=== PATIENT | female | born 1935 | race Caucasian/White ===

== ENCOUNTER 2016-12-19 07:54 | Emergency (ER) | payer MEDICARE, OTHER ==
--- NOTE | 2016-12-19 08:16 | ED Physician Documentation ---
Upper Respiratory Symptoms - HISTORIAN Historian: patient - HPI Chief Complaint: Upper Respiratory Symptoms Onset: days ago Context: denies: recent foreign travel, insect bite(s), tick(s), recent chemotherapy, multiple patients Severity: moderate Associated Symptoms: chills, runny nose, productive cough Further Comments: yes (81 year old female patient presents with complaints of cough, "it's in my chest"; congestion, fatigue x 1 week. Patient states she saw her doctor but "he wouldn't give me an antibiotic".) - ROS CONST/EYES: weakness CVS/RESP: none, other (cough) LYMPH: denies: leg swelling, rash, swollen glands, ankle swelling GI/: none NEURO/PSYCH: denies: fainting, dizziness, confusion, anxiety, depression, other MS/SKIN: denies: joint pain, muscle aches, rash, other - PAST HX Lung Disease: denies: none PE Risk Factors: hypertension, other (HLD, ) Other History: diabetes Type 2 Surgeries/Procedures: appendectomy, cholecystectomy, (x3) Allergies/Adverse Reactions: Allergies Allergy/AdvReac Type Severity Reaction Status Date / Time Penicillins Allergy Intermediate Rash Verified 12/19/16 09:02 metformin AdvReac Intermediate Diarrhea Verified 12/19/16 09:04 Home Medications: Ambulatory Orders Medication Instructions Recorded Ezetimibe [Zetia] 10 mg PO DAILY 09/30/14 Fosinopril Sodium [Monopril] 10 mg PO TID 09/30/14 Levothyroxine Sodium [Synthroid] 100 mcg PO AM 09/30/14 Rosuvastatin Calcium [Crestor] 20 mg PO DAILY 09/30/14 Sitagliptin Phosphate [Januvia] 100 mg PO DAILY 09/30/14 Benzonatate [Tessalon Perles] 200 mg PO TID PRN #60 capsule 12/19/16 Furosemide [Lasix] 20 mg PO DAILY #30 tablet 12/19/16 Omeprazole [Prilosec] 20 mg PO 12/19/16 Potassium Chloride [Klor-Con 10 meq PO DAILY #30 capsule.er 12/19/16 Sprinkle] - SOCIAL HX Smoking History: non-smoker - FAMILY HX Family History: denies: none - VITAL SIGNS Vital Signs: Vital Signs Temp Pulse Resp BP Pulse Ox 150/68 10/26/16 08:15 - REVIEWED ASSESSMENTS Nursing Assessment Reviewed: Yes Vitals Reviewed: Yes Progress - Progress Progress: 3+ pitting edema in ankles and lower legs; KAL hose placed on patient. 1045 BNP 3407 today, no previous BNP to compare values to. Call to Dr Zafar - discussed case, reviewed previous records. Will see patient in clinic tomorrow. Agrees with low dose lasix. Per Dr Zafar, patient is being worked up for valve replacement. Reviewed discharge instructions with patient and family including daily weights and treatment of URI. Appointment made for 12/20/2016 - 1300 - EKG/XRAY/CT EKG: rhythm (SR, with occassional PVC, rate 76) XRAY: chest (mild pulmonary congestion, no infiltrate, cardiomegaly) ED Results Lab/Radiology - Radiology Radiology Impressions: EXAMINATION: Chest, two views. HISTORY: Cough for 1 week. FINDINGS: The heart is enlarged. There is atherosclerosis of the aorta. The lungs are free of acute infiltrate. There is no pleural effusion or pneumothorax. There is atherosclerosis of the aorta. IMPRESSION: 1. Cardiomegaly with mild aortic atherosclerosis. 2. No acute pulmonary infiltrate. Electronically signed on Dec 19, 2016 8:57:40 AM WOUND CARE SPECIALIST by: Aleksandar Lieberman - Orders Orders: ED Orders Category Date Time Status INFLUENZA A&B Stat Lab 12/19/16 Uncollected Upper Respiratory Symptoms - EXAM General Appearance: mild distress (ill appearing) EENT: eyes nml inspection, nml ENT inspection, lids & conjunct. nml, PERRL, ear nml, nose nml, pharynx nml, airway nml Respiratory: no resp. distress, breath sounds nml, no pain on inspiration, speaks full sentences, no pleuritic chest pain Abdomen: non-tender, no organomegaly, nml bowel sounds, no distention CVS: reg rate & rhythm, heart sounds normal, equal pulses, no murmur, no gallop , PMI nml, no JVD, no friction rub, 24 Skin: color nml, no rash, warm,dry Extremities: non-tender, normal range of motion, no evidence of injury, no edema , J, [employer]ER Neuro/Psych: oriented x3, neuro intact, mood/affect nml, CN's nml as tested Discharge Clincal Impression: Cough, Viral syndrome CHF (congestive heart failure), NYHA class III Qualifiers: Congestive heart failure type: systolic Congestive heart failure chronicity: acute Qualified Code(s): I50.21 - Acute systolic (congestive) heart failure Prescriptions: Benzonatate [Tessalon Perles] 200 mg PO TID PRN #60 capsule PRN Reason: Cough Furosemide [Lasix] 20 mg PO DAILY #30 tablet Potassium Chloride [Klor-Con Sprinkle] 10 meq PO DAILY #30 capsule.er Referrals: Wisam Quintana DO [Primary Care Provider] - 2 Days Additional Instructions: 3 prescriptions were sent to the pharmacy. Start the POTASSIUM AND FUROSEMIDE TOMORROW. You received a dose in the Er today. WEIGH EVERYDAY AT THE SAME TIME A DAY AND KEEP A RECORD FOR DR ZAFAR. For your cold: supervisor counseling and guidance an over the counter decongestant for cardiac patients, ask the pharmacist for assistance if you cannot locate it. You may want to try Vicks rub on your chest and/or feet Cough drops as needed for cough and sore throat. Increase your fluid intake juices, hot tea, non-caffeinated beverages Vitamin C may be helpful in decreasing the length of your cold. Use a humidifier in the room where you sleep. You can also sit in a steam filled bathroom 1-2 times a day. Tylenol every 4 hours 650mg -100mg (do not exceed 4000mg in 24 hours) as needed for fever, pain and body aches. Alternate with Ibuprofen Ibuprofen 600-800mg every 6 hours as needed for fever, pain and body aches. See your primary care doctor if your symptoms become worse or do not improve in the next 2-3 days. We will call you with your viral panel results. Home Medications: Ambulatory Orders Ezetimibe [Zetia] 10 mg PO DAILY 09/30/14 Fosinopril Sodium [Monopril] 10 mg PO TID 09/30/14 Levothyroxine Sodium [Synthroid] 100 mcg PO AM 09/30/14 Rosuvastatin Calcium [Crestor] 20 mg PO DAILY 09/30/14 Sitagliptin Phosphate [Januvia] 100 mg PO DAILY 09/30/14 Benzonatate [Tessalon Perles] 200 mg PO TID PRN #60 capsule 12/19/16 Furosemide [Lasix] 20 mg PO DAILY #30 tablet 12/19/16 Omeprazole [Prilosec] 20 mg PO 12/19/16 Potassium Chloride [Klor-Con Sprinkle] 10 meq PO DAILY #30 capsule.er 12/19/16 Condition: Stable Disposition: 01 HOME, SELF-CARE Decision to Admit: NO Decision Time: 11:00
[2016-12-19] MEDS ORDERED: BENZONATATE 100 MG CAPSULE PO ONE (08:31)
[2016-12-19] MEDS ORDERED: ACETAMINOPHEN 500 MG TABLET PO ONE (09:04)
[2016-12-19] MEDS ORDERED: KETOROLAC TROMETHAMINE 60 MG/2 ML VIAL IM ONE (09:04)
[2016-12-19 09:36] LABS: BASOPHILS % 0.6 (0.0-1.5); EOSINOPHILS % 7.1 % (0.0-6.8); LYMPHOCYTES # 1.3 # k/uL (0.6-4.0); MEAN CORPUSCULAR HEMOGLOBIN 30.8 pg (28.0-34.0); MONOCYTES # 0.3 # k/uL (0.0-0.9); MONOCYTES % 6.7 % (0.0-11.0); NEUTROPHILS # 2.4 # k/uL (1.4-7.7)
[2016-12-19] MEDS ORDERED: FUROSEMIDE 40 MG/4 ML VIAL IVP ONE (10:10)
[2016-12-19 10:21] LABS: eGFR (African) > 60; eGFR (Non-African) > 60
[2016-12-19] MEDS ORDERED: FUROSEMIDE 20 MG/2 ML VIAL IVP ONE (10:46)
[2016-12-19] MEDS ORDERED: POTASSIUM CHLORIDE 20 MEQ TABLET.ER PO ONE (10:47)
--- NOTE | 2016-12-19 15:03 | Diagnostic Imaging Report ---
SHAYNE SHARIF (SENIOR EDUCATION SPECIALIST) - ER [facility] [place] [facility] [address] [facility].[address] [address] Report Submission Date: Dec 19, 2016 8:57:40 AM ASBESTOS BRAKE LINING FINISHER HELPER Patient Study Name: GALI EDGE Date: Dec 19, 2016 8:35:00 AM ASBESTOS BRAKE LINING FINISHER HELPER Modality Type: CR Gender: F Description: CHEST : 31 Institution: [facility] [place] [facility] Physician: SHAYNE SHARIF (VELVET) - ER EXAMINATION: Chest, two views. HISTORY: Cough for 1 week. FINDINGS: The heart is enlarged. There is atherosclerosis of the aorta. The lungs are free of acute infiltrate. There is no pleural effusion or pneumothorax. There is atherosclerosis of the aorta. IMPRESSION: 1. Cardiomegaly with mild aortic atherosclerosis. 2. No acute pulmonary infiltrate. Electronically signed on Dec 19, 2016 8:57:40 AM ASBESTOS BRAKE LINING FINISHER HELPER by: Aleksandar BAUTISTA
[2016-12-19 20:17] VITALS: BP 130/62
[2016-12-20 08:21] LABS: ADENOVIRUS DNA NEGATIVE (NEGATIVE); BORDETELLA PERTUSSIS DNA NEGATIVE (NEGATIVE); SOURCE: SWAB
== END 2016-12-19 08:13 | disposition home or self-care (01) ==
LOC: ED 07:54
DX: R05 Cough (principal); J06.9 Acute upper respiratory infection, unspecified; I50.21 Acute systolic (congestive) heart failure
CPT/HCPCS: 71020; 80053; 83880; 85025; 87400; 87486; 87581; 87633; 87798; 93005; A9270; J1885; J1940; 96374; 96375; 99283; 99284; S1016

== ENCOUNTER 2016-12-20 12:53 | Outpatient (CLI) | payer MEDICARE, OTHER ==
[2016-12-19 20:17] VITALS: BP 130/62
== END 2016-12-20 12:54 ==
LOC: CARD 12:53
PROVIDERS: ATTEND Internal Medicine Cardiovascular Disease
DX: I35.0 Nonrheumatic aortic (valve) stenosis (principal)
CPT/HCPCS: G0463

== ENCOUNTER 2017-04-18 13:51 | Outpatient (CLI) | payer MEDICARE, OTHER | END 2017-04-18 13:52 | LOC: CARD 13:51 | PROVIDERS: ATTEND Internal Medicine Cardiovascular Disease | DX: I47.1 Supraventricular tachycardia (principal); I50.30 Unspecified diastolic (congestive) heart failure; I10 Essential (primary) hypertension; E78.5 Hyperlipidemia, unspecified; E11.8 Type 2 diabetes mellitus with unspecified complications; D47.3 Essential (hemorrhagic) thrombocythemia | CPT/HCPCS: G0463 ==

== ENCOUNTER 2017-05-01 08:59 | Outpatient (CLI) | payer MEDICARE, OTHER ==
[2017-05-01 09:31] LABS: BASOPHILS % 0.7 (0.0-1.5); EOSINOPHILS % 5.9 % (0.0-6.8); MEAN CORPUSCULAR HEMOGLOBIN 31.3 pg (28.0-34.0); MEAN CORPUSCULAR VOLUME 90.8 fl (80.0-100.0); MONOCYTES % 7.3 % (0.0-11.0); NEUTROPHILS # 2.8 # k/uL (1.4-7.7)
== END 2017-05-01 09:00 ==
LOC: LAB 08:59
PROVIDERS: ATTEND Internal Medicine Cardiovascular Disease
DX: I47.1 Supraventricular tachycardia (principal)
CPT/HCPCS: 36415; 84443; 85025

== ENCOUNTER 2017-10-10 11:19 | Outpatient (CLI) | payer MEDICARE, OTHER | END 2017-10-10 11:20 | LOC: CARD 11:19 | PROVIDERS: ATTEND Internal Medicine Cardiovascular Disease | DX: Z95.2 Presence of prosthetic heart valve (principal); I50.9 Heart failure, unspecified; I10 Essential (primary) hypertension; E78.5 Hyperlipidemia, unspecified; E11.9 Type 2 diabetes mellitus without complications; R25.1 Tremor, unspecified; I48.91 Unspecified atrial fibrillation | CPT/HCPCS: G0463 ==

== ENCOUNTER 2018-04-06 01:27 | Emergency (ER) | payer MEDICARE, OTHER ==
--- NOTE | 2018-04-06 01:46 | ED Physician Documentation ---
Abdominal Pain - HISTORIAN Historian: patient, child - HPI Chief Complaint: Abdominal Pain Additonal Information: chronic abdominal pain constipation-better since onprobiotic bid still inadequate bm--normal color w/o blood plus mecous Onset: days ago (3-4) Duration: waxing, waning Timing: still present Context: denies: out of country travel, bad food, recent trauma Severity: moderate Quality: pain, aching, other (shakiness denny hands mouth) Associated Symptoms: denies: fever, nausea, coffee ground emesis Exacerbated by: food Relieved by: remaining still, upright position Further Comments: yes - ROS CONST: no problems - SOCIAL HX Smoking History: non-smoker Alcohol Use: none Drug Use: none - FAMILY HX Family History: none, no significant history - PAST HX Past History: none, cardiac disease Other History: none, diabetes Type 1 Surgeries/Procedures: appendectomy, cholecystectomy, hysterectomy Home Medications: Ambulatory Orders Medication Instructions Recorded Fosinopril Sodium [Monopril] 10 mg PO TID 09/30/14 Levothyroxine Sodium [Synthroid] 100 mcg PO AM 09/30/14 Rosuvastatin Calcium [Crestor] 20 mg PO DAILY 09/30/14 Sitagliptin Phosphate [Januvia] 100 mg PO DAILY 09/30/14 Furosemide [Lasix] 20 mg PO DAILY #30 tablet 12/19/16 Omeprazole [Prilosec] 20 mg PO 12/19/16 Potassium Chloride [Klor-Con 10 meq PO DAILY #30 capsule.er 12/19/16 Sprinkle] L.acidoph,Paracasei, B.lactis 1 each PO BID 04/06/18 [Probiotic] Propranolol HCl [Inderal] 20 mg PO QD 04/06/18 Allergies/Adverse Reactions: Allergies Allergy/AdvReac Type Severity Reaction Status Date / Time Penicillins Allergy Intermediate Rash Verified 04/06/18 01:45 - VITAL SIGNS Vital Signs: Vital Signs Temp Pulse Resp BP Pulse Ox 130/62 12/19/16 20:14 - REVIEWED ASSESSMENTS Nursing Assessment Reviewed: Yes Vitals Reviewed: Yes ED Results Lab/Radiology - Radiology Radiology Impressions: cxr= ok abd = xs gas feces - Orders Orders: ED Orders Category Date Time Status ACUTE ABDOMINAL SERIES [ABD SERIES PA CHEST] [RAD] Stat Exams 04/06/18 Ordered Abdominal Pain Physical Exam - Physical Exam General Appearance: alert, mild distress, anxious. No: lethargic EENT: eye inspection normal, ENT inspection normal NECK: normal inspection, thyroid normal, supple. No: stiff neck CVS: No: tachycardia, bradycardia ABDOMEN: soft, non-tender, tenderness. No: no distension, hepatomegaly, abnormal bowel sounds, prominent aortic pulsatio BACK: normal inspection, no CVA tenderness, CVA tenderness (R), other SKIN: warm/dry, normal color. No: cyanosis, diaphoresis, jaundice EXTREMITIES: normal range of motion, no evidence of injury NEURO: oriented X3, CN's nml as tested, motor nml, sensation nml, mood/affect nml, cognition normal Vital Signs: Vital Signs Temp Pulse Resp BP Pulse Ox 130/62 12/19/16 20:14 Discharge Clincal Impression: un dx abd pain, constipaion Referrals: Wisam Quintana DO [Primary Care Provider] - 2 Days Comments: home mg citrate plus xs water f/u w/pcp if not beetter w/ good bms Condition: Good Disposition: 01 HOME, SELF-CARE Decision to Admit: NO Decision Time: 02:17
[2018-04-06 01:50] VITALS: BP 183/85
--- NOTE | 2018-04-06 02:23 | Diagnostic Imaging Report ---
[facility] [address] [facility] [place], [place]. [address] Report Submission Date: Apr 06, 2018 2:22:04 AM CDT Patient Study Name: GALI EDGE Date: Apr 06, 2018 1:51:37 AM CDT Modality Type: DX Gender: F Description: CHEST,ABDOMEN : 31 Institution: [facility] Physician: LILA BOWEN Abdominal structures series with AP chest. History: PT STATES ABDOMINAL PAIN, SHAKINESS, NAUSEA, AND DIARRHEA FOR X1 DAY Findings: The tip of the heart size is no areas of sclerosis of the aorta. Lungs are clear. No pleural effusion or pneumothorax identified. The bowel gas pattern is normal without evidence of bowel dilation to suggest obstruction. A few air-fluid levels are present within the colon suggesting gastroenteritis. There is degenerative and bilateral hips. No free air present. Impression: 1. No acute pulmonary abnormality. 2. No bowel dilation to suggest obstruction 3. Few air-fluid levels are present within the colon suggesting gastroenteritis Electronically signed on Apr 06, 2018 2:22:04 AM CDT by: Aleksandar Lieberman [facility] HOSPITALDeshaun
== END 2018-04-06 02:35 | disposition home or self-care (01) ==
LOC: ED 01:27
DX: R10.9 Unspecified abdominal pain (principal); K59.00 Constipation, unspecified
CPT/HCPCS: 74022; 99284

== ENCOUNTER 2018-07-07 09:50 | Inpatient (IN) | payer MEDICARE, OTHER ==
--- NOTE | 2018-07-07 10:01 | ED Physician Documentation ---
General Adult - HISTORIAN Historian: patient - HPI Stated Complaint: left lower leg swelling Chief Complaint: Lower Extremity Problem Onset: other (total two weeks) Timing: still present, worse Severity: moderate Further Comments: yes (she states two weeks ago she started to have some increased swelling in her left lower leg. She denies any history of DVT. She has "always had swelling " in the left lower leg. Her PCP started her on a double dose of her lasix (although family with her reports she does not take it like she should due to frequent urination). She states she has been taking the 20 mg daily x 2 weeks. She states last night in the middle of the night the leg started to throb and feel hot and swollen. She notes increased swelling and red ness and she felt feverish.She is now stating with no movement her leg does not hurt. However when you "touch my gabriel the front part of my leg hurts" She denies any chest pain . She has mild shortness of breath but states this is her normal. She has a mild headache.) Last known Well Code/Unknown Code: Unknown - ROS CONST: fever, weakness. denies: sweating, recent illness, weight loss EYES/ENT: nasal drainage. denies: problems with vision CVS/RESP: denies: chest pain, shortness of breath, cough GI/: nausea (but states she did take a laxative this am and she had a normal bowel movement which usually results in decreasing nausea ). denies: abdominal pain, vomiting MS/SKIN/LYMPH: leg swelling. denies: rash NEURO/PSYCH: headache. denies: fainting, dizziness, numbness, difficulty walking, difficulty with speech, anxiety - PAST HX Past History: CHF, hypertension, other (DM, hyperlipidemia ) Surgeries/Procedures: other (3- c sections, gallbladder, appy ) Immunizations: referred to PCP Allergies/Adverse Reactions: Allergies Allergy/AdvReac Type Severity Reaction Status Date / Time Penicillins Allergy Intermediate Rash Verified 04/06/18 01:45 Home Medications: Ambulatory Orders Medication Instructions Recorded Fosinopril Sodium [Monopril] 10 mg PO TID 09/30/14 Levothyroxine Sodium [Synthroid] 100 mcg PO AM 09/30/14 Rosuvastatin Calcium [Crestor] 20 mg PO DAILY 09/30/14 Sitagliptin Phosphate [Januvia] 100 mg PO DAILY 09/30/14 Furosemide [Lasix] 20 mg PO DAILY #30 tablet 12/19/16 Omeprazole [Prilosec] 20 mg PO DAILY 12/19/16 Potassium Chloride [Klor-Con 10 meq PO DAILY #30 capsule.er 12/19/16 Sprinkle] L.acidoph,Paracasei, B.lactis 1 each PO BID 04/06/18 [Probiotic] Propranolol HCl [Inderal] 20 mg PO QD 04/06/18 - SOCIAL HX Smoking History: non-smoker Alcohol Use: none Drug Use: none - FAMILY HX Family History: No - VITAL SIGNS Vital Signs: Vital Signs Temp Pulse Resp BP Pulse Ox 183/85 04/06/18 02:35 - REVIEWED ASSESSMENTS Nursing Assessment Reviewed: Yes Vitals Reviewed: Yes ED Results Lab/Radiology - Radiology Radiology Impressions: History: Left leg swelling and shortness of breath Findings: Minimal left base atelectasis or scar is observed. There is no infiltrate or pleural effusion. Aortic valve replacement is observed. Heart size is upper normal. Calcified granulomas are present. Impression: Aortic valve replacement and minimal left basilar atelectasis or scar. Electronically signed on Jul 07, 2018 11:40:24 AM CDT by: Rashid Bennett General Adult Physical Exam - PHYSICAL EXAM GENERAL APPEARANCE: no distress EENT: eye inspection normal, ENT inspection normal, pharynx normal, no signs of dehydration NECK: normal inspection, thyroid normal RESPIRATORY: no resp distress, chest non-tender, breath sounds normal CVS: reg rate & rhythm, heart sounds normal, no murmur ABDOMEN: soft, normal bowel sounds, no distension BACK: normal inspection SKIN: warm/dry, other (left lower leg red warm to touch and painful on frontal lower leg . No pain with calf palpation. foot flexion without pain. pulses + sensation + ) EXTREMITIES: edema (extends from knee to foot ), tenderness (left lower leg) NEURO: oriented X3, CN's nml as tested, motor nml, sensation nml, mood/affect nml, cognition normal Discharge Clincal Impression: Cellulitis of left lower leg Comments: 1230: discussed case with Dr Magdaleno he is agreeable to admission. Family and patient are aware and agreeable DG Condition: Good Disposition: ADMITTED INPATIENT Decision to Admit: [id number] Date of Decison to Admit: 07/07/18 Decision Time: 12:30
[2018-07-07 10:25] LABS: MEAN CORPUSCULAR HEMOGLOBIN 29.9 pg (28.0-34.0); MEAN CORPUSCULAR VOLUME 88.5 fl (80.0-100.0)
[2018-07-07 10:26] LABS: BASOPHILS % 0.2 (0.0-1.5); EOSINOPHILS % 0.5 % (0.0-6.8); MONOCYTES % 3.1 % (0.0-11.0); NEUTROPHILS # 11.5 # k/uL (1.4-7.7)
[2018-07-07 10:28] LABS: eGFR (Non-African) 38
--- NOTE | 2018-07-07 12:51 | Diagnostic Imaging Report ---
MAMIE JOHNSON [facility] [address] [facility] [address] [place], [place]. [address] Report Submission Date: Jul 07, 2018 11:40:24 AM CDT Patient Study Name: GALI EDGE Date: Jul 07, 2018 11:14:28 AM CDT Modality Type: DX Gender: F Description: CHEST : 31 Institution: [facility] Physician: MAMIE JOHNSON Chest two views History: Left leg swelling and shortness of breath Findings: Minimal left base atelectasis or scar is observed. There is no infiltrate or pleural effusion. Aortic valve replacement is observed. Heart size is upper normal. Calcified granulomas are present. Impression: Aortic valve replacement and minimal left basilar atelectasis or scar. Electronically signed on Jul 07, 2018 11:40:24 AM CDT by: Rashid BAUTISTA
[2018-07-07] MEDS ORDERED: 0.9 % SODIUM CHLORIDE 100 ML IV ONE (13:45)
[2018-07-07] MEDS ORDERED: ceFAZolin SODIUM 1 GM VIAL ONE ×3 (13:45→23:18)
[2018-07-07] MEDS: ceFAZolin SODIUM 1 GM VIAL IV SCH ×3 (13:54→23:32)
[2018-07-07] MEDS ORDERED: ENOXAPARIN SODIUM 80 MG/0.8 ML DISP.SYRIN SQ SCH (14:00)
--- NOTE | 2018-07-07 16:30 | History and Physical Report ---
History of Present Illnes - History of Present Illness Reason for Visit: cellulitis of left leg History of Present Illness: This is an 82 year old female who presented to the ER with c/o left lower leg pain and redness. The pain is in the left anterior gabriel, much less so in the left calf. There is a clear area of demarcation of the erythema below the left knee. She says that this came about fairly quickly and is very uncomfortable. Her D-dimer is elevated, as is her white count. - Past Medical History Cardiac: Hyperlipidemia, Aortic stenosis, Other (Peripheral arterial disease) Pulmonary: denies: COPD Gastrointestinal: Other (obesity) Endocrine: Diabetes, Hypothyroidism - Past Surgical History Past Surgical History: Appendectomy, (x3), Other (TAVR) - Past Social History Smoke: No Alcohol: None Drugs: None Lives: Alone Domestic Violence: Negative - Health Maintenance Health Maintenance: Cholesterol Influenza Vaccine: Current for this Influenza Season Pneumonia Vaccine: Yes Resuscitation Status: Resusciation Status Resuscitation Status Full Code - Unable to Obtain History Unable to Obtain: Yes Review of Systems - Review of Systems Constitutional: Fever (low grade) Eyes: pain (left leg) ENT: negative: Ear Pain Respiratory: negative: Cough Cardiovascular: negative: Chest Pain Gastrointestinal: negative: Nausea Genitourinary: negative: Dysuria Musculoskeletal: negative: Neck Pain Skin: negative: Rash Neurological: Weakness - Medications/Allergies Allergies/Adverse Reactions: Allergies Allergy/AdvReac Type Severity Reaction Status Date / Time Penicillins Allergy Intermediate Rash Verified 04/06/18 01:45 Current Inpatient Medications: Current Inpatient Medications Cefazolin Sodium (Ancef) 1 gm IV Q6 [facility] Last Admin: 07/07/18 13:54 Dose: 1 gm Enoxaparin Sodium (Lovenox) 86 mg SQ Q12 [facility] Stop: 07/13/18 21:01 Furosemide (Lasix) 20 mg IVP QD [facility] Levothyroxine Sodium (Synthroid) 100 mcg PO 0700 [facility] Lisinopril (Prinivil) 10 mg PO DAILY [facility] Pantoprazole Sodium (Protonix) 40 mg PO 0700 [facility] Potassium Chloride (Klor-Con M20) 20 meq PO DAILY [facility] Propranolol HCl (Inderal) 20 mg PO DAILY [facility] Simvastatin (Zocor) 40 mg PO HS [facility] Sitagliptin Phosphate (Januvia) 100 mg PO DAILY [facility] Sodium Chloride (Normal Saline Flush) 3 ml IV BID BRIAN Exam - Exam Vital Signs: Vital Signs (72 hours) 07/07/18 07/07/18 07/07/18 09:50 10:01 11:01 Temperature 99.1 F Pulse Rate [ 120 H Pulse ox] Respiratory 28 H Rate Blood Pressure [Left Arm] Blood Pressure 143/62 [Right Arm] O2 Sat by Pulse 88 L 96 96 Oximetry 07/07/18 07/07/18 07/07/18 12:00 13:00 15:15 Temperature Pulse Rate [ 100 H Pulse ox] Respiratory 18 Rate Blood Pressure 110/68 [Left Arm] Blood Pressure [Right Arm] O2 Sat by Pulse 96 96 96 Oximetry General: Alert, Oriented to Person, Oriented to Place HEENT: Atraumatic, PERRLA, EOMI Neck: No: Stridor Lungs: Clear to auscultation, Normal air movement, Speaks full Sentences. No: Respiratory Distress Cardiovascular: Regular rate Murmur: Systolic Murmur (II/ COLE) Abdomen: Normal bowel sounds, Soft Genitourinary: No: Other Male Genitourinary: No: Other Female Genitourinary: No: Other Integumentary: No: Other Extremities: Other (Pain in left anterior gabriel with erythema of the skin. Calf is much less tender to palpation). No: Normal pulses (decreased DP/PT) Neurological: Normal speech Psych/Mental Status: Mental status NL - Laboratory Results Laboratory Results: Laboratory Results 07/07/18 07/07/18 07/07/18 10:06 10:06 10:06 WBC 13.11 H RBC 3.99 Hgb 12.0 Hct 35.3 MCV 88.5 MCH 29.9 MCHC 33.8 RDW 14.0 Plt Count 125 L Neut % (Auto) 88.0 H Lymph % (Auto) 7.5 L Foster % (Auto) 3.1 Eos % (Auto) 0.5 Baso % (Auto) 0.2 Neut # (Auto) 11.5 H Lymph # (Auto) 1.0 Foster # (Auto) 0.4 Eos # (Auto) 0.1 Baso # (Auto) 0.0 Reactive Lymphs % Pending Reactive Lymphs # Pending PT 10.8 INR 1.03 D-Dimer Sodium 135 L Potassium 4.0 Chloride 104 Carbon Dioxide 22 BUN 25 H Creatinine 1.40 H Estimated Creat Clear 47 Est GFR ( Amer) > 60 Est GFR (Non-Af Amer) 38 L Glucose 177 H Calcium 8.5 Total Bilirubin 0.6 AST 19 ALT 24 Alkaline Phosphatase 61 Creatine Kinase 32 Troponin I NT-Pro-B Natriuret Pep Total Protein 6.7 Albumin 3.8 07/07/18 07/07/18 10:07 11:07 WBC RBC Hgb Hct MCV MCH MCHC RDW Plt Count Neut % (Auto) Lymph % (Auto) Foster % (Auto) Eos % (Auto) Baso % (Auto) Neut # (Auto) Lymph # (Auto) Foster # (Auto) Eos # (Auto) Baso # (Auto) Reactive Lymphs % Reactive Lymphs # PT INR D-Dimer 3885 H Sodium Potassium Chloride Carbon Dioxide BUN Creatinine Estimated Creat Clear Est GFR ( Amer) Est GFR (Non-Af Amer) Glucose Calcium Total Bilirubin AST ALT Alkaline Phosphatase Creatine Kinase Troponin I < 0.03 L NT-Pro-B Natriuret Pep 479.6 H Total Protein Albumin Assessment/Plan - Assessment/Plan (1) Cellulitis of left lower leg Status: Acute Current Visit: Yes Assessment: Continue Ancef at current dose Await blood cultures Plan: Discussed with family that although clinically this appears to be cellulitis with elevated WBC and pain in anterior left, I would recommend that we anticoagulate Yesi until we can get an US on Monday (2) Diabetes Status: Acute Current Visit: Yes Qualifiers: Diabetes mellitus type: type 2 Diabetes mellitus mcfp insulin use: without long winder tender use Diabetes mellitus complication status: with circulatory complication Diabetes mellitus complication detail: with other circulatory complications Qualified Code(s): E11.59 - Type 2 diabetes mellitus with other circulatory complications Assessment: ACHS accuchecks Continue oral hypoglycemics (3) CHF (congestive heart failure), NYHA class III Status: Acute Current Visit: No Qualifiers: Congestive heart failure type: systolic Congestive heart failure chronicity: acute Qualified Code(s): I50.21 - Acute systolic (congestive) heart failure VTE Assessment - RISK FACTOR SCORE VTE RISK FACTOR SCORES: AGE OVER 60 YEARS (On Lovenox), ACUTE INFECTION OTHER THEN SEPSIS
[2018-07-07] MEDS ORDERED: ENOXAPARIN SODIUM 80 MG/0.8 ML DISP.SYRIN SQ ONE (16:41)
[2018-07-07] MEDS ORDERED: FUROSEMIDE 20 MG/2 ML VIAL ONE (16:42)
[2018-07-07] MEDS: FUROSEMIDE 20 MG/2 ML VIAL IVP SCH (16:45)
[2018-07-07] MEDS ORDERED: ENOXAPARIN SODIUM 100 MG/ML DISP.SYRIN SQ ONE ×3 (16:50→22:55)
[2018-07-07 18:05] VITALS: BMI 28.1
[2018-07-07] MEDS: SALINE FLUSH 10 ML DISP.SYRIN IV SCH (20:02)
[2018-07-07] MEDS: ENOXAPARIN SODIUM 80 MG/0.8 ML DISP.SYRIN SQ SCH (20:03)
[2018-07-07] MEDS: SIMVASTATIN 40 MG TABLET PO SCH (20:03)
[2018-07-07] MEDS: ACETAMINOPHEN 325 MG TABLET PO PRN (20:03)
[2018-07-08] MEDS ORDERED: ceFAZolin SODIUM 1 GM VIAL ONE ×4 (05:09→22:59)
[2018-07-08] MEDS: ceFAZolin SODIUM 1 GM VIAL IV SCH ×4 (05:12→23:08)
[2018-07-08] MEDS: LEVOTHYROXINE SODIUM 100 MCG TABLET PO SCH (06:10)
[2018-07-08] MEDS: PANTOPRAZOLE SODIUM 40 MG TABLET PO SCH (06:10)
[2018-07-08 07:24] LABS: BASOPHILS % 0.2 (0.0-1.5); EOSINOPHILS % 1.1 % (0.0-6.8); MEAN CORPUSCULAR HEMOGLOBIN 30.1 pg (28.0-34.0); MEAN CORPUSCULAR VOLUME 88.4 fl (80.0-100.0); MONOCYTES % 3.3 % (0.0-11.0); NEUTROPHILS # 6.1 # k/uL (1.4-7.7)
[2018-07-08 07:56] LABS: eGFR (Non-African) 41
[2018-07-08] MEDS ORDERED: LISINOPRIL 5 MG TABLET ONE (08:34)
[2018-07-08] MEDS: PROPRANOLOL HCL 20 MG TABLET PO SCH (08:37)
[2018-07-08] MEDS: SITAGLIPTIN PHOSPHATE 50 MG TABLET PO SCH (08:37)
[2018-07-08] MEDS: SALINE FLUSH 10 ML DISP.SYRIN IV SCH ×2 (08:38→20:19)
[2018-07-08] MEDS: POTASSIUM CHLORIDE 20 MEQ TABLET.ER PO SCH (08:38)
[2018-07-08] MEDS: LISINOPRIL 20 MG TABLET PO SCH (08:39)
--- NOTE | 2018-07-08 11:12 | Diagnostic Imaging Report ---
[facility]MED SURG [facility] [address] [facility].[address] [address] Report Submission Date: Jul 08, 2018 8:05:48 AM CDT Patient Study Name: GALI EDGE Date: Jul 08, 2018 7:34:06 AM CDT Modality Type: DX Gender: F Description: CHEST : 31 Institution: [facility] Physician: S[facility]/MED SURG PA and lateral chest Clinical history: Shortness of breath. Findings: Examination of the chest in PA and lateral views with comparison to examination from the previous day demonstrates the lungs to be clear. The cardiovascular and mediastinal silhouettes are stable. The aorta is atherosclerotic. Transvascular valve replacement is again demonstrated. Degenerative changes are seen throughout the thoracic vertebrae. Impression: 1. Aortic atherosclerosis. 2. No active disease. Electronically signed on Jul 08, 2018 8:05:48 AM CDT by: Maximino BAUTISTA
[2018-07-08] MEDS ORDERED: FUROSEMIDE 20 MG/2 ML VIAL ONE (11:27)
[2018-07-08] MEDS: ENOXAPARIN SODIUM 80 MG/0.8 ML DISP.SYRIN SQ SCH ×2 (12:27→20:20)
--- NOTE | 2018-07-08 12:37 | Inpatient Progress Note ---
Subjective - Required Recertification Statement I anticipate X number of days because-include discharge plan: 1 - Review of Systems Events since last encounter: Yesi's left leg is much improved. My suspicion that this is a DVT is even lower today based on her striking response to antibiosis. Her fever has now resolved, and her pain is much better. She is eating well. She has had several visitors from [facility] today and is in good spirits. General: Denies: Chills HEENT: Denies: Head Aches Pulmonary: Denies: Dyspnea Cardiovascular: Denies: Chest Pain Gastrointestinal: Other (gas) Genitourinary: Dysuria Musculoskeletal: Denies: Neck Pain Neurological: Denies: Weakness Objective - Exam Vitals and I&O: Vital Signs Temp 97.7 F 07/08/18 10:00 Pulse 76 07/08/18 12:00 Resp 20 07/08/18 10:00 BP 146/62 07/08/18 10:00 Pulse Ox 93 07/08/18 10:00 Intake & Output 07/07/18 07/08/18 07/08/18 23:59 11:59 23:59 Intake Total 460 520 Output Total 400 Balance 460 120 Weight 74.389 kg 74.389 kg Intake: IV 100 200 Left Hand 100 200 Oral 360 320 Output: Urine 400 Other: Voiding Method Toilet Toilet # Voids 3 # Bowel Movements 1 General: Alert, Oriented to Person, Oriented to Place, Oriented to Time HEENT: Atraumatic, PERRLA Neck: Supple, No JVD Lungs: Clear to auscultation, Normal air movement Cardiovascular: Regular rate Abdomen: Normal bowel sounds, Soft, No tenderness Extremities: No clubbing, No cyanosis, Other (Redness is much improved) Skin: Normal, [place], Warm Neurological: Normal gait Psych/Mental Status: Mental status NL - Results Results: Laboratory Results WBC 7.90 K/ul (4.00-12.00) 07/08/18 07:20 RBC 3.24 M/ul (3.90-5.20) L 07/08/18 07:20 Hgb 9.8 g/dL (12.0-16.0) L 07/08/18 07:20 Hct 28.6 % (34.5-46.5) L 07/08/18 07:20 MCV 88.4 fl (80.0-100.0) 07/08/18 07:20 MCH 30.1 pg (28.0-34.0) 07/08/18 07:20 MCHC 34.0 g/dL (30.0-36.0) 07/08/18 07:20 RDW 14.2 % (11.3-14.3) 07/08/18 07:20 Plt Count 101 K/mm3 (130-400) L 07/08/18 07:20 Neut % (Auto) 78.1 % (39.0-79.0) 07/08/18 07:20 Lymph % (Auto) 16.2 % (16.0-50.0) 07/08/18 07:20 [place] % (Auto) 3.3 % (0.0-11.0) 07/08/18 07:20 Eos % (Auto) 1.1 % (0.0-6.8) 07/08/18 07:20 Baso % (Auto) 0.2 (0.0-1.5) 07/08/18 07:20 Neut # (Auto) 6.1 # k/uL (1.4-7.7) 07/08/18 07:20 Lymph # (Auto) 1.3 # k/uL (0.6-4.0) 07/08/18 07:20 [place] # (Auto) 0.3 # k/uL (0.0-0.9) 07/08/18 07:20 Eos # (Auto) 0.1 # k/uL (0.0-0.6) 07/08/18 07:20 Baso # (Auto) 0.0 # k/uL (0.0-0.5) 07/08/18 07:20 Reactive Lymphs % 1.1 % (0.0-5.0) 07/08/18 07:20 Reactive Lymphs # 0.1 # k/uL (0.0-0.8) 07/08/18 07:20 PT 10.8 Seconds (9.4-11.6) 07/07/18 10:06 INR 1.03 (0.9-1.2) 07/07/18 10:06 D-Dimer 3885 ng/mL (6.0-682) H 07/07/18 10:07 Sodium 133 mmol/L (136-145) L 07/08/18 07:20 Potassium 3.6 mmol/L (3.5-5.1) 07/08/18 07:20 Chloride 107 mmol/L (98-107) 07/08/18 07:20 Carbon Dioxide 21 mmol/L (22-30) L 07/08/18 07:20 BUN 24 mg/dL (7-17) H 07/08/18 07:20 Creatinine 1.30 mg/dL (0.52-1.04) H 07/08/18 07:20 Estimated Creat Clear 44 07/08/18 07:20 Est GFR ( Amer) > 60 (60-) 07/08/18 07:20 Est GFR (Non-Af Amer) 41 (60-) L 07/08/18 07:20 Glucose 129 mg/dL (74-106) H 07/08/18 07:20 Calcium 7.8 mg/dL (8.4-10.2) L 07/08/18 07:20 Total Bilirubin 0.4 mg/dL (0.2-1.3) 07/08/18 07:20 AST 17 U/L (15-46) 07/08/18 07:20 ALT 19 U/L (13-69) 07/08/18 07:20 Alkaline Phosphatase 44 U/L (38-126) 07/08/18 07:20 Creatine Kinase 32 U/L (30-135) 07/07/18 10:06 Troponin I < 0.03 ng/mL (0.03-0.06) L 07/07/18 11:07 NT-Pro-B Natriuret Pep 1121.0 pg/mL (15.0-450.0) H 07/08/18 07:20 Total Protein 5.7 g/dL (6.3-8.2) L 07/08/18 07:20 Albumin 3.0 g/dL (3.5-5.0) L 07/08/18 07:20 Assessment/Plan - Assessment/Plan (1) Cellulitis of left lower leg Status: Acute Current Visit: Yes Assessment: Markedly improved Plan: Continue Ancef (2) Diabetes Status: Acute Current Visit: Yes Qualifiers: Diabetes mellitus type: type 2 Diabetes mellitus remote computer terminal operator insulin use: without fpc use Diabetes mellitus complication status: with circulatory complication Diabetes mellitus complication detail: with other circulatory complications Qualified Code(s): E11.59 - Type 2 diabetes mellitus with other circulatory complications (3) CHF (congestive heart failure), NYHA class III Status: Acute Current Visit: No Qualifiers: Congestive heart failure type: systolic Congestive heart failure chronicity: acute Qualified Code(s): I50.21 - Acute systolic (congestive) heart failure Assessment: Stable
[2018-07-08] MEDS: FUROSEMIDE 20 MG/2 ML VIAL IVP SCH (13:36)
[2018-07-08] MEDS: SIMETHICONE 80 MG TAB.CHEW PO SCH ×2 (17:25→20:19)
[2018-07-08] MEDS ORDERED: ENOXAPARIN SODIUM 100 MG/ML DISP.SYRIN SQ ONE ×2 (20:17→22:39)
[2018-07-08] MEDS: SIMVASTATIN 40 MG TABLET PO SCH (20:19)
[2018-07-09] MEDS ORDERED: ceFAZolin SODIUM 1 GM VIAL ONE ×2 (04:24→11:08)
[2018-07-09] MEDS: ceFAZolin SODIUM 1 GM VIAL IV SCH ×2 (05:01→12:08)
[2018-07-09] MEDS: LEVOTHYROXINE SODIUM 100 MCG TABLET PO SCH (06:07)
[2018-07-09] MEDS: SIMETHICONE 80 MG TAB.CHEW PO SCH ×4 (06:07→20:09)
[2018-07-09] MEDS: PANTOPRAZOLE SODIUM 40 MG TABLET PO SCH (06:07)
--- NOTE | 2018-07-09 07:39 | Diagnostic Imaging Report ---
MAMIE JOHNSON [facility] [address] [facility], [facility] [place], [place]. [address] Report Submission Date: Jul 09, 2018 6:51:07 AM CDT Patient Study Name: GALI EDGE Date: Jul 09, 2018 6:27:18 AM CDT Modality Type: DX Gender: F Description: CHEST : 31 Institution: [facility] Physician: MAMIE JOHNSON 2 views of the chest History: SHORTNESS OF BREATH, LEG SWELLING Comparison: July 08, 2018 Cardiac size is upper limits of normal. Aortic valve replacement, aortic calcification are again seen. There is bibasilar atelectasis. Dependent lung changes are again noted. There is left costophrenic angle blunting and minimal left basilar opacity. Thoracic spine degenerative changes Impression: 1. Patchy left basilar atelectasis/infiltrate with small left pleural effusion. 2. Minimal right basilar atelectasis. Electronically signed on Jul 09, 2018 6:51:07 AM CDT by: Tabitha BAUTISTA
[2018-07-09] MEDS ORDERED: LISINOPRIL 5 MG TABLET ONE (09:00)
[2018-07-09] MEDS: PROPRANOLOL HCL 20 MG TABLET PO SCH (09:03)
[2018-07-09] MEDS: POTASSIUM CHLORIDE 20 MEQ TABLET.ER PO SCH (09:03)
[2018-07-09] MEDS: ENOXAPARIN SODIUM 80 MG/0.8 ML DISP.SYRIN SQ SCH ×2 (09:03→20:06)
[2018-07-09] MEDS: LISINOPRIL 20 MG TABLET PO SCH (09:03)
[2018-07-09] MEDS: SITAGLIPTIN PHOSPHATE 50 MG TABLET PO SCH (09:03)
[2018-07-09] MEDS: SALINE FLUSH 10 ML DISP.SYRIN IV SCH ×2 (09:03→20:10)
[2018-07-09] MEDS ORDERED: FUROSEMIDE 20 MG/2 ML VIAL ONE (11:08)
[2018-07-09] MEDS ORDERED: ENOXAPARIN SODIUM 100 MG/ML DISP.SYRIN SQ ONE (11:08)
[2018-07-09] MEDS ORDERED: 0.9 % SODIUM CHLORIDE 50 ML IV ONE (11:09)
--- NOTE | 2018-07-09 14:03 | Inpatient Progress Note ---
Subjective - Required Recertification Statement I anticipate X number of days because-include discharge plan: 1 - Review of Systems Events since last encounter: Yesi's redness has now gone down to her ankle. Her left gabriel continues to be very sore to touch. She remains afebrile. I spoke with radiology, and they have her on the schedule to have an us of the leg done. If it is negative for DVT, we will be able to d/c her without anticoagulation and likely will continue you her on oral cefuroxime. Her blood cultues are still pending. I discussed a skilled stay with her and she is amenable to this. General: Denies: Chills, Night Sweats HEENT: Denies: Head Aches Pulmonary: Denies: Dyspnea, Cough Cardiovascular: Denies: Chest Pain Gastrointestinal: Denies: Nausea Genitourinary: Denies: Dysuria Musculoskeletal: Leg Pain (improved). Denies: Neck Pain Neurological: Denies: Weakness, Numbness Objective - Exam Vitals and I&O: Vital Signs Temp 97.4 F L 07/09/18 09:03 Pulse 76 07/09/18 13:45 Resp 20 07/09/18 10:00 BP 120/53 07/09/18 09:03 Pulse Ox 98 07/09/18 09:03 Intake & Output 07/08/18 07/09/18 07/09/18 23:59 11:59 23:59 Intake Total 920 460 240 Balance 920 460 240 Weight 75.45 kg Intake: IV 100 Left Hand 100 Oral 920 360 240 Other: Voiding Method Toilet Toilet # Voids 3 General: Alert, Oriented to Person, Oriented to Place, Discheveled HEENT: PERRLA, EOMI Neck: Supple, No JVD Lungs: Clear to auscultation, Normal air movement Cardiovascular: Regular rate Abdomen: Normal bowel sounds Extremities: Other (redness has regressed) Skin: Normal, [place] Neurological: Normal speech Psych/Mental Status: Mental status NL - Results Results: Laboratory Results WBC 7.90 K/ul (4.00-12.00) 07/08/18 07:20 RBC 3.24 M/ul (3.90-5.20) L 07/08/18 07:20 Hgb 9.8 g/dL (12.0-16.0) L 07/08/18 07:20 Hct 28.6 % (34.5-46.5) L 07/08/18 07:20 MCV 88.4 fl (80.0-100.0) 07/08/18 07:20 MCH 30.1 pg (28.0-34.0) 07/08/18 07:20 MCHC 34.0 g/dL (30.0-36.0) 07/08/18 07:20 RDW 14.2 % (11.3-14.3) 07/08/18 07:20 Plt Count 101 K/mm3 (130-400) L 07/08/18 07:20 Neut % (Auto) 78.1 % (39.0-79.0) 07/08/18 07:20 Lymph % (Auto) 16.2 % (16.0-50.0) 07/08/18 07:20 [place] % (Auto) 3.3 % (0.0-11.0) 07/08/18 07:20 Eos % (Auto) 1.1 % (0.0-6.8) 07/08/18 07:20 Baso % (Auto) 0.2 (0.0-1.5) 07/08/18 07:20 Neut # (Auto) 6.1 # k/uL (1.4-7.7) 07/08/18 07:20 Lymph # (Auto) 1.3 # k/uL (0.6-4.0) 07/08/18 07:20 [place] # (Auto) 0.3 # k/uL (0.0-0.9) 07/08/18 07:20 Eos # (Auto) 0.1 # k/uL (0.0-0.6) 07/08/18 07:20 Baso # (Auto) 0.0 # k/uL (0.0-0.5) 07/08/18 07:20 Reactive Lymphs % 1.1 % (0.0-5.0) 07/08/18 07:20 Reactive Lymphs # 0.1 # k/uL (0.0-0.8) 07/08/18 07:20 PT 10.8 Seconds (9.4-11.6) 07/07/18 10:06 INR 1.03 (0.9-1.2) 07/07/18 10:06 D-Dimer 3885 ng/mL (6.0-682) H 07/07/18 10:07 Sodium 133 mmol/L (136-145) L 07/08/18 07:20 Potassium 3.6 mmol/L (3.5-5.1) 07/08/18 07:20 Chloride 107 mmol/L (98-107) 07/08/18 07:20 Carbon Dioxide 21 mmol/L (22-30) L 07/08/18 07:20 BUN 24 mg/dL (7-17) H 07/08/18 07:20 Creatinine 1.30 mg/dL (0.52-1.04) H 07/08/18 07:20 Estimated Creat Clear 44 07/08/18 07:20 Est GFR ( Amer) > 60 (60-) 07/08/18 07:20 Est GFR (Non-Af Amer) 41 (60-) L 07/08/18 07:20 Glucose 129 mg/dL (74-106) H 07/08/18 07:20 Calcium 7.8 mg/dL (8.4-10.2) L 07/08/18 07:20 Total Bilirubin 0.4 mg/dL (0.2-1.3) 07/08/18 07:20 AST 17 U/L (15-46) 07/08/18 07:20 ALT 19 U/L (13-69) 07/08/18 07:20 Alkaline Phosphatase 44 U/L (38-126) 07/08/18 07:20 Creatine Kinase 32 U/L (30-135) 07/07/18 10:06 Troponin I < 0.03 ng/mL (0.03-0.06) L 07/07/18 11:07 NT-Pro-B Natriuret Pep 456.1 pg/mL (15.0-450.0) H 07/09/18 07:25 Total Protein 5.7 g/dL (6.3-8.2) L 07/08/18 07:20 Albumin 3.0 g/dL (3.5-5.0) L 07/08/18 07:20 Assessment/Plan - Assessment/Plan (1) Cellulitis of left lower leg Status: Acute Current Visit: Yes Plan: Continue ceftriaxone Keep leg elevated Consider skilled stay (family would like to speak with medical social consultant) Await blood cultures (2) Diabetes Status: Acute Current Visit: Yes Qualifiers: Diabetes mellitus type: type 2 Diabetes mellitus intermediate designer insulin use: without custodial use Diabetes mellitus complication status: with circulatory complication Diabetes mellitus complication detail: with other circulatory complications Qualified Code(s): E11.59 - Type 2 diabetes mellitus with other circulatory complications (3) CHF (congestive heart failure), NYHA class III Status: Acute Current Visit: No Qualifiers: Congestive heart failure type: systolic Congestive heart failure chronicity: acute Qualified Code(s): I50.21 - Acute systolic (congestive) heart failure
[2018-07-09] MEDS: FUROSEMIDE 20 MG/2 ML VIAL IVP SCH (15:55)
[2018-07-09] MEDS: FUROSEMIDE 40 MG TABLET PO SCH (16:14)
[2018-07-09] MEDS: SIMVASTATIN 40 MG TABLET PO SCH (20:07)
[2018-07-09] MEDS: ACETAMINOPHEN 325 MG TABLET PO PRN (20:09)
[2018-07-09] MEDS: CEFUROXIME AXETIL 250 MG TABLET PO SCH (20:09)
[2018-07-10] MEDS ORDERED: ENOXAPARIN SODIUM 100 MG/ML DISP.SYRIN SQ ONE (05:30)
[2018-07-10] MEDS: PANTOPRAZOLE SODIUM 40 MG TABLET PO SCH (06:02)
[2018-07-10] MEDS: LEVOTHYROXINE SODIUM 100 MCG TABLET PO SCH (06:02)
[2018-07-10] MEDS: SIMETHICONE 80 MG TAB.CHEW PO SCH ×2 (06:02→11:28)
[2018-07-10] MEDS: POTASSIUM CHLORIDE 20 MEQ TABLET.ER PO SCH (09:04)
[2018-07-10] MEDS: PROPRANOLOL HCL 20 MG TABLET PO SCH (09:04)
[2018-07-10] MEDS: SITAGLIPTIN PHOSPHATE 50 MG TABLET PO SCH (09:04)
[2018-07-10] MEDS: CEFUROXIME AXETIL 250 MG TABLET PO SCH (09:04)
[2018-07-10] MEDS: FUROSEMIDE 40 MG TABLET PO SCH (09:04)
[2018-07-10] MEDS: ENOXAPARIN SODIUM 80 MG/0.8 ML DISP.SYRIN SQ SCH (09:05)
[2018-07-10] MEDS: LISINOPRIL 20 MG TABLET PO SCH (09:05)
[2018-07-10] MEDS: SALINE FLUSH 10 ML DISP.SYRIN IV SCH (09:05)
[2018-07-10 10:25] VITALS: BP 128/56
[2018-07-10] MEDS ORDERED: ENOXAPARIN SODIUM 40 MG/0.4 ML DISP.SYRIN SQ ONE (10:34)
--- NOTE | 2018-07-10 16:22 | Diagnostic Imaging Report ---
JENNIFER WASHBURN [facility] [address] [facility] [address] [address] Report Submission Date: Jul 10, 2018 2:42:01 PM CDT Patient Study Name: GALI EDGE Date: Jul 10, 2018 1:14:17 PM CDT Modality Type: DX Gender: F Description: CHEST : 31 Institution: [facility] Physician: JENNIFER WASHBURN PA and lateral chest History: Short of breath PA and lateral chest dated July 10, 2018 is compared with July 09, 2018 The cardiomediastinal silhouette is unchanged in size and configuration. There is an aortic valve stent with aortic atherosclerosis. Pulmonary vascularity is normal. Lungs are clear. Impression: No active disease. Electronically signed on Jul 10, 2018 2:42:01 PM CDT by: Nicky BAUTISTA
--- NOTE | 2018-07-10 16:35 | Diagnostic Imaging Report ---
JENNIFER WASHBURN [facility] [address] [facility] [address] [address] Report Submission Date: Jul 10, 2018 2:17:27 PM CDT Patient Study Name: GALI EDGE Date: Jul 10, 2018 12:48:37 PM CDT Modality Type: US Gender: F Description: US BLEV : 31 Institution: [facility] Physician: JENNIFER WASHBURN Examination: Ultrasound vein bilaterally History: Calf discomfort Findings: Sonographic evaluation of the lower extremity venous system from the groin to the popliteal fossa inclusive bilaterally. Normal compressibility. No luminal filling defect. Normal waveforms and response to augmentation. No popliteal region fluid collection. Calf venous structures not well visualized. Impression: No evidence for deep venous thrombosis. Electronically signed on Jul 10, 2018 2:17:27 PM CDT by: Jovon BAUTISTA
[2018-07-10] MEDS ORDERED: ENOXAPARIN SODIUM 100 MG/ML DISP.SYRIN SQ SCH (21:00)
--- NOTE | 2018-07-13 13:51 | Discharge Summary ---
DATE OF ADMISSION: July 07, 2018 DATE OF DISCHARGE: July 10, 2018 DIAGNOSES ON THIS HOSPITALIZATION: 1. Cellulitis of left lower extremity. 2. Diabetes mellitus type 2. 3. Congestive heart failure. SUMMARIZATION OF ADMISSION HISTORY AND PHYSICAL: This is an 82-year-old female who presented with left lower extremity swelling, which actually had come up remarkably sudden. She also had a low-grade fever and had generalized malaise and had an elevated white count and was mildly hypotensive when she arrived at the hospital. Because we did not have an ultrasound at the time, she was arbitrarily also started on DVT treatment until an ultrasound could confirm that she in fact did not have a DVT. HOSPITAL COURSE: She continued to do extremely well. Her fever had resolved. Her white count was back down to normal. On July 10, 2018, she was transferred to the skilled floor for continued care. MEDICATIONS ON TRANSFER TO SKILLED STAY: 1. We did stop Lovenox. 2. Continue cefuroxime 250 mg p.o. b.i.d. 3. Lasix 40 mg daily. 4. Levothyroxine 100 mcg daily. 5. Lisinopril 10 mg daily. 6. Pantoprazole 40 mg daily. 7. Potassium chloride 20 mEq daily. 8. Propranolol 20 mg daily. 9. Simethicone q.i.d. on a p.r.n. basis for gas. 10. Simvastatin 40 mg at bedtime. 11. Januvia 100 mg daily. DISCHARGE INSTRUCTIONS: Occupational therapy and physical therapy consults on discharge. [facility]
== END 2018-07-10 14:55 | DRG 603 ==
LOC: ED 09:50 → SOUTH 12:35
PROVIDERS: ADMIT Family Medicine; ATTEND Family Medicine
DX: L03.116 Cellulitis of left lower limb (principal); E11.9 Type 2 diabetes mellitus without complications; I50.9 Heart failure, unspecified
CPT/HCPCS: 71046; 80053; 82550; 83880; 84484; 85025; 85379; 85610; 87040; 93005; 93970; 97116; 97161; A9270; J0690; J1650; J1940; 99222; 99232; 99238; S1016

== ENCOUNTER 2018-07-10 14:56 | Inpatient (IN) | payer MEDICARE, OTHER ==
[2018-07-10] MEDS: SIMETHICONE 80 MG TAB.CHEW PO SCH ×2 (16:27→21:38)
[2018-07-10 17:09] VITALS: BMI 28.6
[2018-07-10] MEDS: CEFUROXIME AXETIL 250 MG TABLET PO SCH (21:38)
[2018-07-10] MEDS: SIMVASTATIN 40 MG TABLET PO SCH (21:38)
[2018-07-11] MEDS: LEVOTHYROXINE SODIUM 100 MCG TABLET PO SCH (06:07)
[2018-07-11] MEDS: PANTOPRAZOLE SODIUM 40 MG TABLET PO SCH (06:07)
[2018-07-11] MEDS: SIMETHICONE 80 MG TAB.CHEW PO SCH ×4 (07:58→20:20)
[2018-07-11] MEDS: PROPRANOLOL HCL 20 MG TABLET PO SCH (07:59)
[2018-07-11] MEDS: CEFUROXIME AXETIL 250 MG TABLET PO SCH ×2 (07:59→20:20)
[2018-07-11] MEDS: SITAGLIPTIN PHOSPHATE 50 MG TABLET PO SCH (08:00)
[2018-07-11] MEDS: POTASSIUM CHLORIDE 20 MEQ TABLET.ER PO SCH (08:01)
[2018-07-11] MEDS: FUROSEMIDE 40 MG TABLET PO SCH (08:01)
[2018-07-11] MEDS: LISINOPRIL 5 MG TABLET PO SCH (08:02)
[2018-07-11] MEDS ORDERED: POLYETHYLENE GLYCOL 3350 17 GM POWD.PACK PO PRN (13:13)
[2018-07-11] MEDS ORDERED: HYDROCORTISONE 2.5% RECTAL 28.35 GM TUBE RC PRN (13:17)
[2018-07-11] MEDS: SIMVASTATIN 40 MG TABLET PO SCH (20:20)
[2018-07-12] MEDS: PANTOPRAZOLE SODIUM 40 MG TABLET PO SCH (06:03)
[2018-07-12] MEDS: LEVOTHYROXINE SODIUM 100 MCG TABLET PO SCH (06:03)
[2018-07-12] MEDS: SIMETHICONE 80 MG TAB.CHEW PO SCH ×4 (09:34→20:05)
[2018-07-12] MEDS: FUROSEMIDE 40 MG TABLET PO SCH (09:34)
[2018-07-12] MEDS: POTASSIUM CHLORIDE 20 MEQ TABLET.ER PO SCH (09:34)
[2018-07-12] MEDS: PROPRANOLOL HCL 20 MG TABLET PO SCH (09:34)
[2018-07-12] MEDS: CEFUROXIME AXETIL 250 MG TABLET PO SCH ×2 (09:34→20:07)
[2018-07-12] MEDS: SITAGLIPTIN PHOSPHATE 50 MG TABLET PO SCH (09:34)
[2018-07-12] MEDS: LISINOPRIL 5 MG TABLET PO SCH (09:35)
[2018-07-12] MEDS: SIMVASTATIN 40 MG TABLET PO SCH (20:06)
[2018-07-13] MEDS: LEVOTHYROXINE SODIUM 100 MCG TABLET PO SCH (06:18)
[2018-07-13] MEDS: PANTOPRAZOLE SODIUM 40 MG TABLET PO SCH (06:18)
[2018-07-13] MEDS: FUROSEMIDE 40 MG TABLET PO SCH (09:34)
[2018-07-13] MEDS: SITAGLIPTIN PHOSPHATE 50 MG TABLET PO SCH (09:34)
[2018-07-13] MEDS: LISINOPRIL 5 MG TABLET PO SCH (09:34)
[2018-07-13] MEDS: POTASSIUM CHLORIDE 20 MEQ TABLET.ER PO SCH (09:35)
[2018-07-13] MEDS: PROPRANOLOL HCL 20 MG TABLET PO SCH (09:35)
[2018-07-13] MEDS: CEFUROXIME AXETIL 250 MG TABLET PO SCH ×2 (09:35→20:57)
[2018-07-13] MEDS: SIMETHICONE 80 MG TAB.CHEW PO SCH ×4 (09:35→20:56)
[2018-07-13] MEDS: SIMVASTATIN 40 MG TABLET PO SCH (20:56)
[2018-07-14] MEDS: PANTOPRAZOLE SODIUM 40 MG TABLET PO SCH (06:10)
[2018-07-14] MEDS: LEVOTHYROXINE SODIUM 100 MCG TABLET PO SCH (06:10)
[2018-07-14] MEDS: CEFUROXIME AXETIL 250 MG TABLET PO SCH ×2 (09:29→20:11)
[2018-07-14] MEDS: SIMETHICONE 80 MG TAB.CHEW PO SCH ×4 (09:29→20:11)
[2018-07-14] MEDS: POTASSIUM CHLORIDE 20 MEQ TABLET.ER PO SCH (09:29)
[2018-07-14] MEDS: FUROSEMIDE 40 MG TABLET PO SCH (09:29)
[2018-07-14] MEDS: SITAGLIPTIN PHOSPHATE 50 MG TABLET PO SCH (09:30)
[2018-07-14] MEDS: PROPRANOLOL HCL 20 MG TABLET PO SCH (09:30)
[2018-07-14] MEDS: LISINOPRIL 5 MG TABLET PO SCH (09:30)
[2018-07-14] MEDS: SIMVASTATIN 40 MG TABLET PO SCH (20:11)
[2018-07-15] MEDS: LEVOTHYROXINE SODIUM 100 MCG TABLET PO SCH (06:05)
[2018-07-15] MEDS: PANTOPRAZOLE SODIUM 40 MG TABLET PO SCH (06:05)
[2018-07-15] MEDS: SIMETHICONE 80 MG TAB.CHEW PO SCH ×4 (08:19→20:15)
[2018-07-15] MEDS: PROPRANOLOL HCL 20 MG TABLET PO SCH (08:19)
[2018-07-15] MEDS: POTASSIUM CHLORIDE 20 MEQ TABLET.ER PO SCH (08:19)
[2018-07-15] MEDS: LISINOPRIL 5 MG TABLET PO SCH (08:19)
[2018-07-15] MEDS: SITAGLIPTIN PHOSPHATE 50 MG TABLET PO SCH (08:19)
[2018-07-15] MEDS: FUROSEMIDE 40 MG TABLET PO SCH (08:19)
[2018-07-15] MEDS: CEFUROXIME AXETIL 250 MG TABLET PO SCH ×2 (08:19→20:15)
[2018-07-15] MEDS: SIMVASTATIN 40 MG TABLET PO SCH (20:15)
[2018-07-16] MEDS: PANTOPRAZOLE SODIUM 40 MG TABLET PO SCH (06:04)
[2018-07-16] MEDS: LEVOTHYROXINE SODIUM 100 MCG TABLET PO SCH (06:04)
[2018-07-16] MEDS: SITAGLIPTIN PHOSPHATE 50 MG TABLET PO SCH (08:54)
[2018-07-16] MEDS: POTASSIUM CHLORIDE 20 MEQ TABLET.ER PO SCH (08:55)
[2018-07-16] MEDS: LISINOPRIL 5 MG TABLET PO SCH (08:55)
[2018-07-16] MEDS: SIMETHICONE 80 MG TAB.CHEW PO SCH ×4 (08:55→20:37)
[2018-07-16] MEDS: PROPRANOLOL HCL 20 MG TABLET PO SCH (08:55)
[2018-07-16] MEDS: CEFUROXIME AXETIL 250 MG TABLET PO SCH ×2 (08:55→20:38)
[2018-07-16] MEDS: FUROSEMIDE 40 MG TABLET PO SCH (08:55)
[2018-07-16] MEDS: SIMVASTATIN 40 MG TABLET PO SCH (20:37)
[2018-07-17] MEDS: LEVOTHYROXINE SODIUM 100 MCG TABLET PO SCH (06:03)
[2018-07-17] MEDS: PANTOPRAZOLE SODIUM 40 MG TABLET PO SCH (06:03)
[2018-07-17] MEDS: SIMETHICONE 80 MG TAB.CHEW PO SCH ×4 (08:40→20:19)
[2018-07-17] MEDS: PROPRANOLOL HCL 20 MG TABLET PO SCH (08:41)
[2018-07-17] MEDS: CEFUROXIME AXETIL 250 MG TABLET PO SCH ×2 (08:41→20:19)
[2018-07-17] MEDS: SITAGLIPTIN PHOSPHATE 50 MG TABLET PO SCH (08:42)
[2018-07-17] MEDS: POTASSIUM CHLORIDE 20 MEQ TABLET.ER PO SCH (08:42)
[2018-07-17] MEDS: FUROSEMIDE 40 MG TABLET PO SCH (08:42)
[2018-07-17] MEDS: LISINOPRIL 5 MG TABLET PO SCH (08:42)
[2018-07-17] MEDS: SIMVASTATIN 40 MG TABLET PO SCH (20:19)
[2018-07-18] MEDS: PANTOPRAZOLE SODIUM 40 MG TABLET PO SCH (06:22)
[2018-07-18] MEDS: LEVOTHYROXINE SODIUM 100 MCG TABLET PO SCH (06:22)
[2018-07-18] MEDS: SITAGLIPTIN PHOSPHATE 50 MG TABLET PO SCH (08:43)
[2018-07-18] MEDS: PROPRANOLOL HCL 20 MG TABLET PO SCH (08:43)
[2018-07-18] MEDS: SIMETHICONE 80 MG TAB.CHEW PO SCH ×4 (08:43→20:06)
[2018-07-18] MEDS: CEFUROXIME AXETIL 250 MG TABLET PO SCH ×2 (08:43→20:07)
[2018-07-18] MEDS: FUROSEMIDE 40 MG TABLET PO SCH (08:44)
[2018-07-18] MEDS: LISINOPRIL 5 MG TABLET PO SCH (08:44)
[2018-07-18] MEDS: POTASSIUM CHLORIDE 20 MEQ TABLET.ER PO SCH (08:44)
[2018-07-18] MEDS: SIMVASTATIN 40 MG TABLET PO SCH (20:07)
[2018-07-19] MEDS: LEVOTHYROXINE SODIUM 100 MCG TABLET PO SCH (06:46)
[2018-07-19] MEDS: PANTOPRAZOLE SODIUM 40 MG TABLET PO SCH (06:46)
[2018-07-19] MEDS: PROPRANOLOL HCL 20 MG TABLET PO SCH (08:15)
[2018-07-19] MEDS: SIMETHICONE 80 MG TAB.CHEW PO SCH ×4 (08:15→20:07)
[2018-07-19] MEDS: CEFUROXIME AXETIL 250 MG TABLET PO SCH ×2 (08:15→20:06)
[2018-07-19] MEDS: FUROSEMIDE 40 MG TABLET PO SCH (08:15)
[2018-07-19] MEDS: POTASSIUM CHLORIDE 20 MEQ TABLET.ER PO SCH (08:15)
[2018-07-19] MEDS: SITAGLIPTIN PHOSPHATE 50 MG TABLET PO SCH (08:16)
[2018-07-19] MEDS: LISINOPRIL 5 MG TABLET PO SCH (08:16)
[2018-07-19] MEDS: SIMVASTATIN 40 MG TABLET PO SCH (20:06)
[2018-07-20] MEDS: LEVOTHYROXINE SODIUM 100 MCG TABLET PO SCH (06:11)
[2018-07-20] MEDS: PANTOPRAZOLE SODIUM 40 MG TABLET PO SCH (06:11)
[2018-07-20] MEDS: FUROSEMIDE 40 MG TABLET PO SCH (08:46)
[2018-07-20] MEDS: SIMETHICONE 80 MG TAB.CHEW PO SCH ×4 (08:46→20:07)
[2018-07-20] MEDS: POTASSIUM CHLORIDE 20 MEQ TABLET.ER PO SCH (08:46)
[2018-07-20] MEDS: PROPRANOLOL HCL 20 MG TABLET PO SCH (08:47)
[2018-07-20] MEDS: SITAGLIPTIN PHOSPHATE 50 MG TABLET PO SCH (08:47)
[2018-07-20] MEDS: LISINOPRIL 5 MG TABLET PO SCH (08:47)
[2018-07-20] MEDS: CEFUROXIME AXETIL 250 MG TABLET PO SCH (08:47)
[2018-07-20] MEDS: SIMVASTATIN 40 MG TABLET PO SCH (20:07)
[2018-07-21] MEDS: LEVOTHYROXINE SODIUM 100 MCG TABLET PO SCH (06:07)
[2018-07-21] MEDS: PANTOPRAZOLE SODIUM 40 MG TABLET PO SCH (06:07)
[2018-07-21] MEDS: SIMETHICONE 80 MG TAB.CHEW PO SCH ×4 (08:49→20:54)
[2018-07-21] MEDS: FUROSEMIDE 40 MG TABLET PO SCH (08:50)
[2018-07-21] MEDS: POTASSIUM CHLORIDE 20 MEQ TABLET.ER PO SCH (08:50)
[2018-07-21] MEDS: PROPRANOLOL HCL 20 MG TABLET PO SCH (08:53)
[2018-07-21] MEDS: LISINOPRIL 5 MG TABLET PO SCH (08:53)
[2018-07-21] MEDS: SITAGLIPTIN PHOSPHATE 50 MG TABLET PO SCH (08:53)
[2018-07-21] MEDS: SIMVASTATIN 40 MG TABLET PO SCH (20:54)
[2018-07-22] MEDS: PANTOPRAZOLE SODIUM 40 MG TABLET PO SCH (06:43)
[2018-07-22] MEDS: LEVOTHYROXINE SODIUM 100 MCG TABLET PO SCH (06:43)
[2018-07-22] MEDS: LISINOPRIL 5 MG TABLET PO SCH (08:54)
[2018-07-22] MEDS: PROPRANOLOL HCL 20 MG TABLET PO SCH (08:54)
[2018-07-22] MEDS: POTASSIUM CHLORIDE 20 MEQ TABLET.ER PO SCH (08:54)
[2018-07-22] MEDS: SIMETHICONE 80 MG TAB.CHEW PO SCH ×4 (08:54→20:08)
[2018-07-22] MEDS: FUROSEMIDE 40 MG TABLET PO SCH (08:54)
[2018-07-22] MEDS: SITAGLIPTIN PHOSPHATE 50 MG TABLET PO SCH (08:54)
[2018-07-22] MEDS: SIMVASTATIN 40 MG TABLET PO SCH (20:08)
[2018-07-23] MEDS: PANTOPRAZOLE SODIUM 40 MG TABLET PO SCH (06:02)
[2018-07-23] MEDS: LEVOTHYROXINE SODIUM 100 MCG TABLET PO SCH (06:02)
[2018-07-23] MEDS: POTASSIUM CHLORIDE 20 MEQ TABLET.ER PO SCH (08:40)
[2018-07-23] MEDS: FUROSEMIDE 40 MG TABLET PO SCH (08:40)
[2018-07-23] MEDS: SIMETHICONE 80 MG TAB.CHEW PO SCH ×4 (08:40→20:05)
[2018-07-23] MEDS: LISINOPRIL 5 MG TABLET PO SCH (08:41)
[2018-07-23] MEDS: SITAGLIPTIN PHOSPHATE 50 MG TABLET PO SCH (08:41)
[2018-07-23] MEDS: PROPRANOLOL HCL 20 MG TABLET PO SCH (08:41)
[2018-07-23] MEDS: SIMVASTATIN 40 MG TABLET PO SCH (20:06)
[2018-07-24] MEDS: LEVOTHYROXINE SODIUM 100 MCG TABLET PO SCH (06:13)
[2018-07-24] MEDS: PANTOPRAZOLE SODIUM 40 MG TABLET PO SCH (06:13)
[2018-07-24] MEDS: FUROSEMIDE 40 MG TABLET PO SCH (08:42)
[2018-07-24] MEDS: POTASSIUM CHLORIDE 20 MEQ TABLET.ER PO SCH (08:42)
[2018-07-24] MEDS: SIMETHICONE 80 MG TAB.CHEW PO SCH (08:42)
[2018-07-24] MEDS: PROPRANOLOL HCL 20 MG TABLET PO SCH (08:43)
[2018-07-24] MEDS: LISINOPRIL 5 MG TABLET PO SCH (08:43)
[2018-07-24] MEDS: SITAGLIPTIN PHOSPHATE 50 MG TABLET PO SCH (08:43)
[2018-07-24 09:36] VITALS: BP 112/40
--- NOTE | 2018-07-26 11:36 | Discharge Summary ---
DATE OF ADMISSION: July 10, 2018 DATE OF DISCHARGE: July 24, 2018. DIAGNOSES ON THIS HOSPITALIZATION: 1. Congestive heart failure. 2. Cellulitis of left lower leg. 3. Diabetes mellitus fairly well controlled. 4. Ataxia. SUMMARIZATION OF ADMISSION HISTORY AND PHYSICAL: This is an 82-year-old female initially admitted for an acute stay 3 days before her admission to [facility] with a complaint of left lower extremity redness and pain. On that hospitalization, a DVT study was done which showed no evidence of a DVT and she actually improved markedly with IV antibiotics. She was, however, significantly weakened after being bed bound for several days and she was admitted for skilled care. HOSPITAL COURSE: She responded pretty well and enthusiastically participated in physical therapy. She was discharged to home then on July 24. CONDITION ON DISCHARGE: She is discharged to home with home health in improved condition. MEDICATIONS ON DISCHARGE: 1. Lasix 40 mg daily. 2. Levothyroxine 100 mcg daily. 3. Lisinopril 10 mg daily. 4. MiraLAX 17 grams p.o. daily. 5. Potassium chloride 20 mEq p.o. daily. 6. Propranolol 20 mg p.o. daily. 7. Simvastatin 40 mg at bedtime. 8. Januvia 100 mg daily. DISCHARGE INSTRUCTIONS: 1. I will see her back in the office in 2 weeks. 2. Resume home health with [facility]. LILY
== END 2018-07-24 10:30 | disposition home health service (06) | DRG 92 ==
LOC: SOUTH 14:56
PROVIDERS: ADMIT Family Medicine; ATTEND Family Medicine
DX: R27.0 Ataxia, unspecified (principal); L03.116 Cellulitis of left lower limb; I50.9 Heart failure, unspecified; E11.9 Type 2 diabetes mellitus without complications
CPT/HCPCS: 97110; 97112; 97116; 97161; 97165; 97530; 97535; A9270

== ENCOUNTER 2018-08-18 10:38 | Inpatient (IN) | payer MEDICARE, OTHER ==
[2018-08-18] MEDS ORDERED: VANCOMYCIN HCL 1.25 GM in 0.9 % SODIUM CHLORIDE 500 ML IV ONE (11:06)
--- NOTE | 2018-08-18 11:19 | ED Physician Documentation ---
Lower Extremity Problem - HPI Stated Complaint: Left Leg Pain Chief Complaint: Lower Extremity Problem Additional Information: Patient presents with a 45 day history of left left swelling, redness and tenderness. She was admitted by Dr. Magdaleno on Jul 07 with left lower extremity cellulitis. She was started of Ceftin IV. US venous doppler of the left lower extremity was negative for DVT. The swelling and redness improved rapidly on IV antibiotics. She was disharged to [facility] and finished PO antibiotics. She was discharged from [facility] on July 24, 2018. Patient represented to [facility] on Jul 27, 2018 with redness, swelling in the left leg once again. She was admitted and placed on IV antibiotics (Vanco?). Seven days PO antibiotics of Doxycyline were given at discharge on Jul 29, 2018. Location of Injury: L leg Onset: days ago (45 days) Timing: worse Duration: constant Recent Injury: No Where: home Severity: moderate Quality: pain, swelling, tenderness, other (redness) Exacerbated By: walking Relieved By: nothing Associated Symptoms: denies: chest pain, shortness of breath, rapid heart rate Further Comments: no - ROS CONST: weakness. denies: fever MS/SKIN/LYMPH: denies: calf pain, joint pain CVS/RESP: denies: chest pain, shortness of breath GI/: denies: abdominal pain EYES/ENT: none NERUO/PSYCH: denies: headache - PAST HX Past History: none PE Risk Factors: hypertension, leg swelling. denies: hx DVT, recent surgery Other History: hypertension, diabetes Type 2, other (heart valve replacement) Surgeries/Procedures: appendectomy, cholecystectomy, (x 3) Allergies/Adverse Reactions: Allergies Allergy/AdvReac Type Severity Reaction Status Date / Time Penicillins Allergy Intermediate Rash Verified 08/18/18 10:56 Home Medications: Ambulatory Orders Medication Instructions Recorded Levothyroxine Sodium [Synthroid] 100 mcg PO 0700 09/30/14 Sitagliptin Phosphate [Januvia] 100 mg PO 0730 09/30/14 Omeprazole 20 mg PO DAILY 08/18/18 - SOCIAL HX Smoking History: non-smoker Alcohol Use: none Drug Use: none - FAMILY HX Family History: none - VITAL SIGNS Vital Signs: Vital Signs Temp Pulse Resp BP Pulse Ox 97.4 F L 68 16 120/44 97 08/22/18 13:43 08/22/18 13:43 08/22/18 13:43 08/22/18 13:43 08/22/18 13:43 - REVIEWED ASSESSMENTS Nursing Assessment Reviewed: Yes Vitals Reviewed: Yes Progress - Progress Progress: 1300 Patient is resting comfortably after infusion of Vancomycin but still complaining of left leg pain and swelling. Multiple family members in room. Discussed admission for treatment of left leg cellulitis with failed outpatient oral antibiotics. [address] Magdaleno, he agrees to admission with Vancomycin and Rocephin. ED Results Lab/Radiology - Lab Results Lab Results: Lab Results 08/18/18 08/18/18 08/18/18 11:29 11:28 11:28 WBC 6.80 K/ul K/ul (4.00-12.00) RBC 3.36 M/ul L M/ul (3.90-5.20) Hgb 10.1 g/dL L g/dL (12.0-16.0) Hct 30.1 % L % (34.5-46.5) MCV 90.0 fl fl (80.0-100.0) MCH 30.0 pg pg (28.0-34.0) MCHC 33.4 g/dL g/dL (30.0-36.0) RDW 13.8 % % (11.3-14.3) Plt Count 106 K/mm3 L K/mm3 (130-400) Neut % (Auto) 80.0 % H % (39.0-79.0) Lymph % (Auto) 12.2 % L % (16.0-50.0) [place] % (Auto) 6.1 % % (0.0-11.0) Eos % (Auto) 1.5 % % (0.0-6.8) Baso % (Auto) 0.2 (0.0-1.5) Neut # (Auto) 5.4 # k/uL # k/uL (1.4-7.7) Lymph # (Auto) 0.8 # k/uL # k/uL (0.6-4.0) [place] # (Auto) 0.4 # k/uL # k/uL (0.0-0.9) Eos # (Auto) 0.1 # k/uL # k/uL (0.0-0.6) Baso # (Auto) 0.0 # k/uL # k/uL (0.0-0.5) ESR 37 mm/hr H mm/hr (0-30) Sodium 140 mmol/L mmol/L (136-145) Potassium 4.8 mmol/L mmol/L (3.5-5.1) Chloride 110 mmol/L H mmol/L (98-107) Carbon Dioxide 19 mmol/L L mmol/L (22-30) BUN 19 mg/dL H mg/dL (7-17) Creatinine 1.10 mg/dL H mg/dL (0.52-1.04) Estimated Creat Clear 70 Est GFR ( Amer) > 60 (60 - ) Est GFR (Non-Af Amer) > 60 (60 - ) Glucose 145 mg/dL H mg/dL (74-106) Calcium 8.3 mg/dL L mg/dL (8.4-10.2) Total Bilirubin 0.9 mg/dL mg/dL (0.2-1.3) AST 37 U/L U/L (15-46) ALT 24 U/L U/L (13-69) Alkaline Phosphatase 45 U/L U/L (38-126) Total Protein 6.6 g/dL g/dL (6.3-8.2) Albumin 3.4 g/dL L g/dL (3.5-5.0) - Orders Orders: ED Orders Category Date Time Status Place IV Lock 1T Care 08/18/18 11:04 Completed BLOOD CULTURE Stat Lab 08/18/18 11:28 Completed CBC AUTO DIFF Stat Lab 08/18/18 11:29 Completed CMP Routine Lab 08/18/18 11:28 Completed CRP [C REACTIVE PROTEIN] Routine Lab 08/18/18 Completed SEDIMENTATION RATE (ESR) Routine Lab 08/18/18 11:28 Completed 0.9 % Sodium Chloride [Sodium Chloride] 250 ml Med 08/18/18 11:25 Discontinued IV .STK-MED Vancomycin HCl [Vancocin] 1.25 gm Med 08/18/18 11:06 Discontinued 0.9 % Sodium Chloride [Normal Saline] 500 ml IV NOW Lower Extremity Problem - EXAM General Appearance: no distress Legs: left: pain, soft tissue tenderness, swelling (+2 edema), other (redess and heat pretibial ) Neuro/Tendon: normal sensation EENT: SHERRY RESPIRATORY: no resp distress, breath sounds normal CVS: reg rate & rhythm (heart valve murmur present) JOINT: nml ROM, Nml gait/weight bearing VASCULAR: no vascular compromise, pulses full/equal NEURO/PSYCH: oriented X3 SKIN: warm/dry BACK: no CVA tenderness Discharge Clincal Impression: Cellulitis of left lower extremity Clincal Impression: (Ruled Out): The administrative codes within the [employer] content you are accessing may have as of 08/06/2018. Please contact your IT Dept/Help Desk and request the latest Regulatory release be installed. IT Dept/Help Desk- Please refer to our FAQ page ([email or web address]) or contact [employer] Customer Support at [email or web address] Condition: Stable Disposition: ADMITTED INPATIENT Decision to Admit: [id number] Date of Decison to Admit: 08/18/18 Decision Time: 13:32
[2018-08-18] MEDS ORDERED: 0.9 % SODIUM CHLORIDE 250 ML IV ONE (11:25)
[2018-08-18 11:47] LABS: BASOPHILS % 0.2 (0.0-1.5); EOSINOPHILS % 1.5 % (0.0-6.8); MONOCYTES % 6.1 % (0.0-11.0); NEUTROPHILS # 5.4 # k/uL (1.4-7.7)
[2018-08-18 11:55] LABS: eGFR (Non-African) > 60
[2018-08-18] MEDS ORDERED: ONDANSETRON HCL/PF 4 MG/ 2ML VIAL IVP PRN (14:08)
[2018-08-18] MEDS ORDERED: HYDROcodone /APAP 5/325 1 EACH TABLET PO PRN (14:13)
[2018-08-18 14:58] VITALS: BMI 29.2
[2018-08-18] MEDS ORDERED: VANCOMYCIN PHARMACY TO DOSE IV SCH (15:00)
[2018-08-18] MEDS: INSULIN REGULAR, HUMAN 100 UNIT/ML 3ML VIAL SQ SCH ×2 (16:21→20:13)
[2018-08-18] MEDS ORDERED: ceFAZolin SODIUM 1 GM VIAL ONE (16:58)
[2018-08-18] MEDS ORDERED: ceFAZolin SODIUM 1 GM VIAL IVP SCH (18:00)
--- NOTE | 2018-08-18 18:21 | History and Physical Report ---
History of Present Illnes - History of Present Illness Reason for Visit: Cellulitis of left leg History of Present Illness: This is an 82 year old female well known to me. She was admitted last months with cellulitis of her left leg. Since then she had gone home, however she was admitted to on July 27 with recurrence of her leg cellulitis. She was discharged from there on 07/29 with oral doxycyline, and finished this course. Yesterday, she began to have a resumption of pain and redness in her left leg. Her white count is not up, and although she feels chilled, she is not febrile. - Past Medical History Cardiac: Hyperlipidemia, Aortic stenosis (s/p TAVR 2017), Other (Peripheral arterial disease) Gastrointestinal: Other (obesity) Endocrine: Diabetes, Hypothyroidism - Past Surgical History Past Surgical History: Appendectomy, (x3), Other (TAVR) - Past Social History Smoke: No Alcohol: None Drugs: None Lives: Alone Domestic Violence: Negative - Health Maintenance Health Maintenance: Cholesterol Influenza Vaccine: Current for this Influenza Season Pneumonia Vaccine: Yes Resuscitation Status: Resusciation Status Resuscitation Status Full Code - Unable to Obtain History Unable to Obtain: No Review of Systems - Review of Systems Constitutional: negative: Fever, Weakness Eyes: negative: pain ENT: negative: Ear Pain, Ear Discharge Respiratory: negative: Cough Cardiovascular: negative: Chest Pain Gastrointestinal: negative: Nausea, Vomiting Genitourinary: negative: Dysuria, Frequency Musculoskeletal: Leg Pain (left). negative: Neck Pain Skin: negative: Rash Neurological: negative: Weakness, Numbness, Change in Speech, Confusion - Medications/Allergies Allergies/Adverse Reactions: Allergies Allergy/AdvReac Type Severity Reaction Status Date / Time Penicillins Allergy Intermediate Rash Verified 08/18/18 10:56 Home Medications: Home Medications Omeprazole 20 mg PO DAILY 08/18/18 Current Inpatient Medications: Current Inpatient Medications Aspirin (Ecotrin) 81 mg PO DAILY [facility] Cefazolin Sodium (Ancef) 1 gm IVP Q6 [facility] Last Admin: 08/18/18 17:41 Dose: 1 gm Heparin Sodium (Porcine) (Heparin) 5,000 unit SQ Q8 [facility] Insulin Human Regular (Humulin R) 0 unit SQ CHEMQID [facility]; Protocol Last Admin: 08/18/18 16:21 Dose: Not Given Levothyroxine Sodium (Synthroid) 100 mcg PO 0700 [facility] Miscellaneous (Vancomycin Pharmacy To Dose) 1 each IV NOW [facility] Ondansetron HCl (Zofran 4 Mg/2 Ml) 4 mg IVP Q6H PRN PRN Reason: Nausea / Vomiting Pantoprazole Sodium (Protonix) 40 mg PO 0700 [facility] Propranolol HCl (Inderal) 20 mg PO BID [facility] Exam - Exam Vital Signs: Vital Signs (72 hours) 08/18/18 08/18/18 08/18/18 10:40 14:10 14:43 Temperature 98.1 F 97.8 F Pulse Rate [ 88 77 87 Pulse ox] Respiratory 20 20 14 Rate Blood Pressure 152/62 136/59 108/41 [Left Arm] Blood Pressure 108/31 [Right Arm] O2 Sat by Pulse 95 99 Oximetry 08/18/18 18:00 Temperature 97.9 F Pulse Rate [ 84 Pulse ox] Respiratory 14 Rate Blood Pressure [Left Arm] Blood Pressure 107/43 [Right Arm] O2 Sat by Pulse 98 Oximetry General: Alert, Oriented to Person, Oriented to Place, Oriented to Time HEENT: Atraumatic, PERRLA, EOMI Neck: Stridor Lungs: Clear to auscultation, Normal air movement Cardiovascular: Regular rate Murmur: Systolic Murmur Murmur Location: Left Sternal Boarder Heart Murmur Grade: II Abdomen: Normal bowel sounds, Soft, No tenderness, No hepatospenomegaly Genitourinary: No: Other Male Genitourinary: No: Other Female Genitourinary: No: Other Integumentary: Normal, [place], Warm Extremities: Other (edema and warmth of the left leg (less so the foot) is noted. She has about 3+ edema in her left and foot) Neurological: Normal speech Psych/Mental Status: Mental status NL - Laboratory Results Laboratory Results: Laboratory Results 08/18/18 08/18/18 11:28 11:29 WBC 6.80 RBC 3.36 L Hgb 10.1 L Hct 30.1 L MCV 90.0 MCH 30.0 MCHC 33.4 RDW 13.8 Plt Count 106 L Neut % (Auto) 80.0 H Lymph % (Auto) 12.2 L [place] % (Auto) 6.1 Eos % (Auto) 1.5 Baso % (Auto) 0.2 Neut # (Auto) 5.4 Lymph # (Auto) 0.8 [place] # (Auto) 0.4 Eos # (Auto) 0.1 Baso # (Auto) 0.0 Sodium 140 Potassium 4.8 Chloride 110 H Carbon Dioxide 19 L BUN 19 H Creatinine 1.10 H Estimated Creat Clear 70 Est GFR ( Amer) > 60 Est GFR (Non-Af Amer) > 60 Glucose 145 H Calcium 8.3 L Total Bilirubin 0.9 AST 37 ALT 24 Alkaline Phosphatase 45 Total Protein 6.6 Albumin 3.4 L Assessment/Plan - Assessment/Plan (1) Cellulitis of left lower extremity Status: Acute Current Visit: Yes Assessment: Blood cultures drawn and pending Continue Vancomycin and change Ancef to Rocephin due to PCN allergy (2) CHF (congestive heart failure), NYHA class III Status: Acute Current Visit: No Qualifiers: Congestive heart failure type: systolic Congestive heart failure chronicity: acute Qualified Code(s): I50.21 - Acute systolic (congestive) heart failure Assessment: Well compensated (3) Diabetes Status: Acute Current Visit: No Qualifiers: Diabetes mellitus type: type 2 Diabetes mellitus intermediate insulin use: without termination clerk use Diabetes mellitus complication status: with circulatory complication Diabetes mellitus complication detail: with other circulatory complications Qualified Code(s): E11.59 - Type 2 diabetes mellitus with other circulatory complications Assessment: Well controlled VTE Assessment - RISK FACTOR SCORE VTE RISK FACTOR SCORES: AGE OVER 60 YEARS, ACUTE INFECTION OTHER THEN SEPSIS - RISK VTE MODERATE RISK: SCORE OF 2 (RISK PROXIMAL DVT 2-4%) PROPHYAXIS NEEDED (On Lovenox)
[2018-08-18] MEDS ORDERED: cefTRIAXone SODIUM 1 GM in 0.9 % SODIUM CHLORIDE 100 ML IV SCH (19:00)
[2018-08-18] MEDS ORDERED: VANCOMYCIN HCL 1 GM in 0.9 % SODIUM CHLORIDE 250 ML IV SCH (19:00)
[2018-08-18] MEDS ORDERED: cefTRIAXone SODIUM 1 GM VIAL ONE (19:42)
[2018-08-18] MEDS ORDERED: 0.9 % SODIUM CHLORIDE 50 ML IV ONE (19:42)
[2018-08-18] MEDS: cefTRIAXone SODIUM 1 GM in 0.9 % SODIUM CHLORIDE 50 ML IV SCH (19:51)
[2018-08-18] MEDS: ENOXAPARIN SODIUM 30 MG/0.3 ML DISP.SYRIN SQ SCH (20:13)
[2018-08-18] MEDS: SIMVASTATIN 40 MG TABLET PO SCH (20:13)
[2018-08-18] MEDS: PROPRANOLOL HCL 20 MG TABLET PO SCH (20:13)
[2018-08-18] MEDS ORDERED: HEPARIN SODIUM 5000 UNIT/1 ML SQ SCH (21:00)
[2018-08-19] MEDS: LEVOTHYROXINE SODIUM 100 MCG TABLET PO SCH (06:00)
[2018-08-19] MEDS: PANTOPRAZOLE SODIUM 40 MG TABLET PO SCH (06:00)
[2018-08-19 07:34] LABS: MEAN CORPUSCULAR HEMOGLOBIN 32.8 pg (28.0-34.0); eGFR (Non-African) > 60
[2018-08-19 07:35] LABS: BASOPHILS % 0.2 (0.0-1.5); EOSINOPHILS % 4.6 % (0.0-6.8); MONOCYTES % 9.2 % (0.0-11.0); NEUTROPHILS # 2.9 # k/uL (1.4-7.7)
[2018-08-19] MEDS: INSULIN REGULAR, HUMAN 100 UNIT/ML 3ML VIAL SQ SCH ×4 (08:22→21:00)
[2018-08-19] MEDS ORDERED: FUROSEMIDE 20 MG TABLET PO SCH (09:00)
[2018-08-19] MEDS: ASPIRIN EC 81 MG TABLET.DR PO SCH (09:37)
[2018-08-19] MEDS: SITAGLIPTIN PHOSPHATE 50 MG TABLET PO SCH (09:37)
[2018-08-19] MEDS: PROPRANOLOL HCL 20 MG TABLET PO SCH ×2 (09:37→21:06)
[2018-08-19] MEDS ORDERED: 0.9 % SODIUM CHLORIDE 250 ML IV ONE (13:05)
[2018-08-19] MEDS ORDERED: VANCOMYCIN HCL 1 GM VIAL IV ONE (13:05)
[2018-08-19] MEDS: VANCOMYCIN HCL 1 GM in 0.9 % SODIUM CHLORIDE 250 ML IV SCH (13:26)
--- NOTE | 2018-08-19 13:43 | Inpatient Progress Note ---
Subjective - Required Recertification Statement I anticipate X number of days because-include discharge plan: 3 - Review of Systems Events since last encounter: Yesi has responded very well to antibiotic therapy. Her leg is much less warm and the erythema has regressed significantly. She still has some pain in her leg, but that too is better. General: Fatigue. Denies: Chills, Night Sweats HEENT: Denies: Head Aches Pulmonary: Denies: Dyspnea, Cough Cardiovascular: Denies: Chest Pain Gastrointestinal: Denies: Nausea Genitourinary: Denies: Dysuria Musculoskeletal: Leg Pain. Denies: Neck Pain Neurological: Weakness. Denies: Change in Speech, Confusion Objective - Exam Vitals and I&O: Vital Signs Temp 98.4 F 08/19/18 09:11 Pulse 66 08/19/18 09:11 Resp 18 08/19/18 09:11 BP 121/43 08/19/18 09:11 Pulse Ox 94 08/19/18 09:11 Intake & Output 08/18/18 08/19/18 08/19/18 23:59 11:59 23:59 Intake Total 240 680 Balance 240 680 Weight 74.843 kg Intake: Oral 240 680 Other: Voiding Method Toilet Toilet # Voids 1 General: Alert, Oriented to Person, Oriented to Place, Oriented to Time, Cooperative, Mild distress, Thin, Obese HEENT: Atraumatic, EOMI Neck: Supple, No JVD, No thyromegaly Lungs: Clear to auscultation, Normal air movement, Speaks full Sentences. No: Respiratory Distress, Wheezes Cardiovascular: Regular rate, Normal S1, Normal S2 Abdomen: Normal bowel sounds, Soft, No tenderness Extremities: Other (3+ edema bilaterally) Skin: Normal, [employer] Neurological: Normal speech Psych/Mental Status: Mental status NL - Results Results: Laboratory Results WBC 4.30 K/ul (4.00-12.00) 08/19/18 05:45 RBC 2.84 M/ul (3.90-5.20) L 08/19/18 05:45 Hgb 9.0 g/dL (12.0-16.0) L 08/19/18 05:45 Hct 25.2 % (34.5-46.5) L 08/19/18 05:45 MCV 89.0 fl (80.0-100.0) 08/19/18 05:45 MCH 32.8 pg (28.0-34.0) 08/19/18 05:45 MCHC 35.8 g/dL (30.0-36.0) 08/19/18 05:45 RDW 13.3 % (11.3-14.3) 08/19/18 05:45 Plt Count 91 K/mm3 (130-400) L 08/19/18 05:45 Neut % (Auto) 66.8 % (39.0-79.0) 08/19/18 05:45 Lymph % (Auto) 19.2 % (16.0-50.0) 08/19/18 05:45 [place] % (Auto) 9.2 % (0.0-11.0) 08/19/18 05:45 Eos % (Auto) 4.6 % (0.0-6.8) 08/19/18 05:45 Baso % (Auto) 0.2 (0.0-1.5) 08/19/18 05:45 Neut # (Auto) 2.9 # k/uL (1.4-7.7) 08/19/18 05:45 Lymph # (Auto) 0.8 # k/uL (0.6-4.0) 08/19/18 05:45 [place] # (Auto) 0.4 # k/uL (0.0-0.9) 08/19/18 05:45 Eos # (Auto) 0.2 # k/uL (0.0-0.6) 08/19/18 05:45 Baso # (Auto) 0.0 # k/uL (0.0-0.5) 08/19/18 05:45 ESR 37 mm/hr (0-30) H 08/18/18 11:28 Sodium 141 mmol/L (136-145) 08/19/18 05:45 Potassium 3.6 mmol/L (3.5-5.1) 08/19/18 05:45 Chloride 113 mmol/L (98-107) H 08/19/18 05:45 Carbon Dioxide 20 mmol/L (22-30) L 08/19/18 05:45 BUN 16 mg/dL (7-17) 08/19/18 05:45 Creatinine 1.00 mg/dL (0.52-1.04) 08/19/18 05:45 Estimated Creat Clear 58 08/19/18 05:45 Est GFR ( Amer) > 60 (60-) 08/19/18 05:45 Est GFR (Non-Af Amer) > 60 (60-) 08/19/18 05:45 Glucose 113 mg/dL (74-106) H 08/19/18 05:45 Calcium 8.0 mg/dL (8.4-10.2) L 08/19/18 05:45 Total Bilirubin 0.9 mg/dL (0.2-1.3) 08/18/18 11:28 AST 37 U/L (15-46) 08/18/18 11:28 ALT 24 U/L (13-69) 08/18/18 11:28 Alkaline Phosphatase 45 U/L (38-126) 08/18/18 11:28 C-Reactive Protein 0.40 mg/dL (<0.50) 08/18/18 Unknown Total Protein 6.6 g/dL (6.3-8.2) 08/18/18 11:28 Albumin 3.4 g/dL (3.5-5.0) L 08/18/18 11:28 Assessment/Plan - Assessment/Plan (1) Cellulitis of left lower extremity Status: Acute Current Visit: Yes Assessment: Improved Plan: May need CT scan of her left lower extremity Dr. Jain consult (2) CHF (congestive heart failure), NYHA class III Status: Acute Current Visit: No Qualifiers: Congestive heart failure type: systolic Congestive heart failure chronicity: acute Qualified Code(s): I50.21 - Acute systolic (congestive) heart failure Assessment: Stable Plan: Restart furosemide Follow renal function (3) Diabetes Status: Acute Current Visit: No Qualifiers: Diabetes mellitus type: type 2 Diabetes mellitus laborer marine terminal insulin use: without laborer marine terminal use Diabetes mellitus complication status: with circulatory complication Diabetes mellitus complication detail: with other circulatory complications Qualified Code(s): E11.59 - Type 2 diabetes mellitus with other circulatory complications Assessment: Well controlled
[2018-08-19] MEDS: FUROSEMIDE 20 MG TABLET PO SCH (15:06)
[2018-08-19] MEDS ORDERED: cefTRIAXone SODIUM 1 GM VIAL ONE (18:29)
[2018-08-19] MEDS ORDERED: 0.9 % SODIUM CHLORIDE 50 ML IV ONE (18:29)
[2018-08-19] MEDS: cefTRIAXone SODIUM 1 GM in 0.9 % SODIUM CHLORIDE 50 ML IV SCH (19:18)
[2018-08-19] MEDS: SIMVASTATIN 40 MG TABLET PO SCH (21:04)
[2018-08-19] MEDS: ENOXAPARIN SODIUM 30 MG/0.3 ML DISP.SYRIN SQ SCH (21:04)
[2018-08-20] MEDS: PANTOPRAZOLE SODIUM 40 MG TABLET PO SCH (06:00)
[2018-08-20] MEDS: LEVOTHYROXINE SODIUM 100 MCG TABLET PO SCH (06:00)
[2018-08-20 07:20] LABS: MEAN CORPUSCULAR HEMOGLOBIN 29.9 pg (28.0-34.0)
[2018-08-20 07:21] LABS: BASOPHILS % 0.2 (0.0-1.5); EOSINOPHILS % 6.9 % (0.0-6.8); MONOCYTES % 9.6 % (0.0-11.0); NEUTROPHILS # 2.7 # k/uL (1.4-7.7)
[2018-08-20 07:44] LABS: eGFR (Non-African) > 60
[2018-08-20] MEDS: INSULIN REGULAR, HUMAN 100 UNIT/ML 3ML VIAL SQ SCH ×4 (08:38→20:20)
[2018-08-20] MEDS: PROPRANOLOL HCL 20 MG TABLET PO SCH ×2 (08:52→20:20)
[2018-08-20] MEDS: SITAGLIPTIN PHOSPHATE 50 MG TABLET PO SCH (08:53)
[2018-08-20] MEDS: ASPIRIN EC 81 MG TABLET.DR PO SCH (08:53)
[2018-08-20] MEDS: FUROSEMIDE 20 MG TABLET PO SCH (08:53)
[2018-08-20] MEDS: VANCOMYCIN HCL 1 GM in 0.9 % SODIUM CHLORIDE 250 ML IV SCH (13:11)
[2018-08-20] MEDS ORDERED: cefTRIAXone SODIUM 1 GM VIAL ONE (18:51)
[2018-08-20] MEDS ORDERED: 0.9 % SODIUM CHLORIDE 50 ML IV ONE (18:52)
--- NOTE | 2018-08-20 19:02 | Inpatient Progress Note ---
Subjective - Required Recertification Statement I anticipate X number of days because-include discharge plan: 2 - Review of Systems Events since last encounter: Yesi is feeling a little better. I spoke to Dr. Jain about her today and he will consult on her tomorrow. I have ordered an ultrasound for tomorrow. General: Denies: Chills, Night Sweats, Fatigue, Malaise HEENT: Denies: Head Aches, Visual Changes Pulmonary: Denies: Dyspnea, Cough Cardiovascular: Denies: Chest Pain, Palpitations Gastrointestinal: Denies: Nausea, Vomiting Genitourinary: Denies: Dysuria Musculoskeletal: Leg Pain (improved). Denies: Neck Pain Neurological: Denies: Weakness, Numbness, Incoordination Objective - Exam Vitals and I&O: Vital Signs Temp 97.8 F 08/20/18 18:00 Pulse 85 08/20/18 18:00 Resp 20 08/20/18 18:00 BP 130/54 08/20/18 18:00 Pulse Ox 98 08/20/18 18:00 Intake & Output 08/19/18 08/20/18 08/20/18 23:59 11:59 23:59 Intake Total 0847 851 0778 Balance 9022 020 8887 Intake: IV 1296 Right Hand 1296 Oral 540 198 0311 Tube Feeding 400 400 400 Other: Voiding Method Toilet Toilet Toilet # Voids 2 2 2 General: Alert, Oriented to Person, Oriented to Place, Mild distress, Discheveled HEENT: PERRLA, EOMI, Mouth Mucous membr. moist/[place] Neck: Supple, No JVD Lungs: Clear to auscultation, Normal air movement, Speaks full Sentences Cardiovascular: Regular rate, Normal S1, Normal S2 Abdomen: Normal bowel sounds, Soft, No tenderness Extremities: No clubbing, No cyanosis, No edema Skin: Normal, [place], Warm Neurological: Normal gait, Normal speech, Cranial nerves 3-12 NL Psych/Mental Status: Mental status NL, Appropriate Affect - Results Results: Laboratory Results WBC 4.60 K/ul (4.00-12.00) 08/20/18 06:00 RBC 3.09 M/ul (3.90-5.20) L 08/20/18 06:00 Hgb 9.2 g/dL (12.0-16.0) L 08/20/18 06:00 Hct 27.6 % (34.5-46.5) L 08/20/18 06:00 MCV 89.0 fl (80.0-100.0) 08/20/18 06:00 MCH 29.9 pg (28.0-34.0) 08/20/18 06:00 MCHC 33.5 g/dL (30.0-36.0) 08/20/18 06:00 RDW 13.5 % (11.3-14.3) 08/20/18 06:00 Plt Count 99 K/mm3 (130-400) L 08/20/18 06:00 Neut % (Auto) 57.7 % (39.0-79.0) 08/20/18 06:00 Lymph % (Auto) 25.6 % (16.0-50.0) 08/20/18 06:00 [place] % (Auto) 9.6 % (0.0-11.0) 08/20/18 06:00 Eos % (Auto) 6.9 % (0.0-6.8) H 08/20/18 06:00 Baso % (Auto) 0.2 (0.0-1.5) 08/20/18 06:00 Neut # (Auto) 2.7 # k/uL (1.4-7.7) 08/20/18 06:00 Lymph # (Auto) 1.2 # k/uL (0.6-4.0) 08/20/18 06:00 [place] # (Auto) 0.4 # k/uL (0.0-0.9) 08/20/18 06:00 Eos # (Auto) 0.3 # k/uL (0.0-0.6) 08/20/18 06:00 Baso # (Auto) 0.0 # k/uL (0.0-0.5) 08/20/18 06:00 ESR 37 mm/hr (0-30) H 08/18/18 11:28 Sodium 141 mmol/L (136-145) 08/20/18 06:00 Potassium 3.7 mmol/L (3.5-5.1) 08/20/18 06:00 Chloride 111 mmol/L (98-107) H 08/20/18 06:00 Carbon Dioxide 20 mmol/L (22-30) L 08/20/18 06:00 BUN 20 mg/dL (7-17) H 08/20/18 06:00 Creatinine 1.10 mg/dL (0.52-1.04) H 08/20/18 06:00 Estimated Creat Clear 52 08/20/18 06:00 Est GFR ( Amer) > 60 (60-) 08/20/18 06:00 Est GFR (Non-Af Amer) > 60 (60-) 08/20/18 06:00 Glucose 108 mg/dL (74-106) H 08/20/18 06:00 Calcium 7.5 mg/dL (8.4-10.2) L 08/20/18 06:00 Total Bilirubin 0.9 mg/dL (0.2-1.3) 08/18/18 11:28 AST 37 U/L (15-46) 08/18/18 11:28 ALT 24 U/L (13-69) 08/18/18 11:28 Alkaline Phosphatase 45 U/L (38-126) 08/18/18 11:28 C-Reactive Protein 0.40 mg/dL (<0.50) 08/18/18 Unknown Total Protein 6.6 g/dL (6.3-8.2) 08/18/18 11:28 Albumin 3.4 g/dL (3.5-5.0) L 08/18/18 11:28 Assessment/Plan - Assessment/Plan (1) Cellulitis of left lower extremity Status: Acute Current Visit: Yes Assessment: Continue ceftriaxone and vancomycin (2) CHF (congestive heart failure), NYHA class III Status: Acute Current Visit: No Qualifiers: Congestive heart failure type: systolic Congestive heart failure chronicity: acute Qualified Code(s): I50.21 - Acute systolic (congestive) heart failure Assessment: Well compensated (3) Diabetes Status: Acute Current Visit: No Qualifiers: Diabetes mellitus type: type 2 Diabetes mellitus longterm insulin use: without longterm use Diabetes mellitus complication status: with circulatory complication Diabetes mellitus complication detail: with other circulatory complications Qualified Code(s): E11.59 - Type 2 diabetes mellitus with other circulatory complications Assessment: Well controlled
[2018-08-20] MEDS: cefTRIAXone SODIUM 1 GM in 0.9 % SODIUM CHLORIDE 50 ML IV SCH (19:30)
[2018-08-20] MEDS: ENOXAPARIN SODIUM 30 MG/0.3 ML DISP.SYRIN SQ SCH (20:20)
[2018-08-20] MEDS: SIMVASTATIN 40 MG TABLET PO SCH (20:20)
[2018-08-21] MEDS: PANTOPRAZOLE SODIUM 40 MG TABLET PO SCH (06:00)
[2018-08-21] MEDS: LEVOTHYROXINE SODIUM 100 MCG TABLET PO SCH (06:00)
[2018-08-21] MEDS: INSULIN REGULAR, HUMAN 100 UNIT/ML 3ML VIAL SQ SCH ×4 (08:06→20:35)
[2018-08-21] MEDS: ASPIRIN EC 81 MG TABLET.DR PO SCH (10:56)
[2018-08-21] MEDS: SITAGLIPTIN PHOSPHATE 50 MG TABLET PO SCH (10:57)
[2018-08-21] MEDS: FUROSEMIDE 20 MG TABLET PO SCH (10:57)
[2018-08-21] MEDS: PROPRANOLOL HCL 20 MG TABLET PO SCH ×2 (10:57→20:35)
[2018-08-21] MEDS: VANCOMYCIN HCL 1 GM in 0.9 % SODIUM CHLORIDE 250 ML IV SCH (12:37)
[2018-08-21] MEDS ORDERED: 0.9 % SODIUM CHLORIDE 50 ML IV ONE (13:44)
[2018-08-21] MEDS ORDERED: cefTRIAXone SODIUM 1 GM VIAL ONE (13:44)
--- NOTE | 2018-08-21 13:45 | Inpatient Progress Note ---
Subjective - Required Recertification Statement I anticipate X number of days because-include discharge plan: 1 - Review of Systems Events since last encounter: Venous U/S shows a deep venous thrombosis of the left posterior tibial vein today.I have started her on Eliquis for this at 5 mg po BID with a plan to go to 2.5 after 7 days (based on review of recent review article) due to her age of 78. Objective - Exam Vitals and I&O: Vital Signs Temp 97.8 F 08/21/18 10:00 Pulse 68 08/21/18 10:00 Resp 16 08/21/18 10:00 BP 153/67 08/21/18 10:00 Pulse Ox 98 08/21/18 10:00 Intake & Output 08/20/18 08/21/18 08/21/18 23:59 11:59 23:59 Intake Total 3226 520 Balance 3226 520 Intake: IV 1476 20 Right Hand 1476 20 Oral 1350 500 Tube Feeding 400 Other: Voiding Method Toilet Toilet # Voids 2 3 General: Alert, Oriented to Person, Oriented to Place, Oriented to Time, Cooperative HEENT: Atraumatic, PERRLA, EOMI Neck: Supple, No JVD Lungs: Clear to auscultation, Normal air movement, Speaks full Sentences Cardiovascular: Regular rate, Normal S1, Normal S2 Abdomen: Normal bowel sounds, Soft, No tenderness Extremities: No clubbing, No cyanosis, Other (edema is about the same, but redness is much improved) - Results Results: Laboratory Results WBC 4.60 K/ul (4.00-12.00) 08/20/18 06:00 RBC 3.09 M/ul (3.90-5.20) L 08/20/18 06:00 Hgb 9.2 g/dL (12.0-16.0) L 08/20/18 06:00 Hct 27.6 % (34.5-46.5) L 08/20/18 06:00 MCV 89.0 fl (80.0-100.0) 08/20/18 06:00 MCH 29.9 pg (28.0-34.0) 08/20/18 06:00 MCHC 33.5 g/dL (30.0-36.0) 08/20/18 06:00 RDW 13.5 % (11.3-14.3) 08/20/18 06:00 Plt Count 99 K/mm3 (130-400) L 08/20/18 06:00 Neut % (Auto) 57.7 % (39.0-79.0) 08/20/18 06:00 Lymph % (Auto) 25.6 % (16.0-50.0) 08/20/18 06:00 [place] % (Auto) 9.6 % (0.0-11.0) 08/20/18 06:00 Eos % (Auto) 6.9 % (0.0-6.8) H 08/20/18 06:00 Baso % (Auto) 0.2 (0.0-1.5) 08/20/18 06:00 Neut # (Auto) 2.7 # k/uL (1.4-7.7) 08/20/18 06:00 Lymph # (Auto) 1.2 # k/uL (0.6-4.0) 08/20/18 06:00 [place] # (Auto) 0.4 # k/uL (0.0-0.9) 08/20/18 06:00 Eos # (Auto) 0.3 # k/uL (0.0-0.6) 08/20/18 06:00 Baso # (Auto) 0.0 # k/uL (0.0-0.5) 08/20/18 06:00 ESR 37 mm/hr (0-30) H 08/18/18 11:28 Sodium 141 mmol/L (136-145) 08/20/18 06:00 Potassium 3.7 mmol/L (3.5-5.1) 08/20/18 06:00 Chloride 111 mmol/L (98-107) H 08/20/18 06:00 Carbon Dioxide 20 mmol/L (22-30) L 08/20/18 06:00 BUN 20 mg/dL (7-17) H 08/20/18 06:00 Creatinine 1.10 mg/dL (0.52-1.04) H 08/20/18 06:00 Estimated Creat Clear 52 08/20/18 06:00 Est GFR ( Amer) > 60 (60-) 08/20/18 06:00 Est GFR (Non-Af Amer) > 60 (60-) 08/20/18 06:00 Glucose 108 mg/dL (74-106) H 08/20/18 06:00 Calcium 7.5 mg/dL (8.4-10.2) L 08/20/18 06:00 Total Bilirubin 0.9 mg/dL (0.2-1.3) 08/18/18 11:28 AST 37 U/L (15-46) 08/18/18 11:28 ALT 24 U/L (13-69) 08/18/18 11:28 Alkaline Phosphatase 45 U/L (38-126) 08/18/18 11:28 C-Reactive Protein 0.40 mg/dL (<0.50) 08/18/18 Unknown Total Protein 6.6 g/dL (6.3-8.2) 08/18/18 11:28 Albumin 3.4 g/dL (3.5-5.0) L 08/18/18 11:28 Assessment/Plan - Assessment/Plan (1) Cellulitis of left lower extremity Status: Acute Current Visit: Yes (2) CHF (congestive heart failure), NYHA class III Status: Acute Current Visit: No Qualifiers: Congestive heart failure type: systolic Congestive heart failure chronicity: acute Qualified Code(s): I50.21 - Acute systolic (congestive) heart failure (3) Diabetes Status: Acute Current Visit: No Qualifiers: Diabetes mellitus type: type 2 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
[2018-08-21] MEDS ORDERED: APIXABAN 2.5 MG TABLET PO SCH (14:00)
[2018-08-21] MEDS ORDERED: BISACODYL 5 MG TABLET.DR PO PRN (14:08)
[2018-08-21] MEDS: APIXABAN 2.5 MG TABLET PO SCH ×2 (15:21→19:52)
--- NOTE | 2018-08-21 16:53 | Diagnostic Imaging Report ---
BEBETO WASHBURN [facility] [id number] [facility].[address] [id number] Report Submission Date: Aug 21, 2018 1:18:19 PM CDT Patient Study Name: GALI EDGE Date: Aug 21, 2018 9:50:33 AM CDT Modality Type: US Gender: F Description: [facility] : 31 Institution: [facility] Physician: BEBETO WASHBURN Left lower extremity venous duplex History: Lower leg swelling. Shortness of breath. Duplex and color flow imaging was performed through the left lower extremity femoral popliteal venous system revealing deep venous thrombosis of the posterior tibial vein. The peroneal vein cannot be identified. The remainder of the left lower extremity femoral popliteal venous system is patent. Impression: Deep venous thrombosis of posterior tibial vein. Nonvisualization of the peroneal vein. Electronically signed on Aug 21, 2018 1:18:19 PM CDT by: Nicky BAUTISTA
[2018-08-21] MEDS: cefTRIAXone SODIUM 1 GM in 0.9 % SODIUM CHLORIDE 50 ML IV SCH (18:59)
[2018-08-21] MEDS: SIMVASTATIN 40 MG TABLET PO SCH (20:35)
[2018-08-21] MEDS: ENOXAPARIN SODIUM 30 MG/0.3 ML DISP.SYRIN SQ SCH (20:35)
[2018-08-22] MEDS: PANTOPRAZOLE SODIUM 40 MG TABLET PO SCH (06:09)
[2018-08-22] MEDS: LEVOTHYROXINE SODIUM 100 MCG TABLET PO SCH (06:09)
[2018-08-22] MEDS: INSULIN REGULAR, HUMAN 100 UNIT/ML 3ML VIAL SQ SCH ×2 (07:36→11:24)
[2018-08-22] MEDS: APIXABAN 2.5 MG TABLET PO SCH (08:33)
[2018-08-22] MEDS: ASPIRIN EC 81 MG TABLET.DR PO SCH (08:34)
[2018-08-22] MEDS: PROPRANOLOL HCL 20 MG TABLET PO SCH (08:34)
[2018-08-22] MEDS: SITAGLIPTIN PHOSPHATE 50 MG TABLET PO SCH (08:34)
[2018-08-22] MEDS: FUROSEMIDE 20 MG TABLET PO SCH (08:34)
[2018-08-22 13:44] VITALS: BP 120/44
--- NOTE | 2018-08-22 16:45 | Discharge Summary ---
DATE OF ADMISSION: August 18, 2018 DATE OF DISCHARGE: August 22, 2018 DIAGNOSES ON THIS HOSPITALIZATION: 1. Deep venous thrombosis of left lower extremity. 2. Cellulitis of left lower extremity. 3. Diabetes mellitus type 2. 4. Hypertension. SUMMARIZATION OF ADMISSION HISTORY AND PHYSICAL: This is an 82-year-old female who was admitted for increasing redness and swelling of her left lower extremity. She had been admitted to [facility] on July 27 with recurrence of her left leg cellulitis and was discharged on August 04 on oral doxycycline. She finished that course; however, on about the 17 of August, she began to have resumption of pain and redness in her left leg. She was feeling very chilled and pain was significant. She was brought to the emergency room for an evaluation. HOSPITAL COURSE: She was started on vancomycin and azithromycin. She actually tolerated this pretty well and the redness got quite a bit better; however, on hospital day 2, we did do a DVT study of her left lower extremity which showed a thrombosis of the left posterior tibial vein. As a result, she was started on Eliquis 5 mg p.o. b.i.d. and, because of her age of over 78 years, that will be decreased after 7 days to 2.5 mg p.o. b.i.d. She is discharged then to skilled status today for continued occupational therapy. MEDICATIONS ON DISCHARGE: She will be discharged on: 1. Eliquis 5 mg p.o. b.i.d. 2. Enteric coated aspirin 81 mg p.o. daily. 3. Continue her sliding scale insulin. 4. Continue Lasix 40 mg daily. 5. Hydrocodone with APAP p.r.n. pain. 6. Levothyroxine at 100 mcg daily. 7. Zofran p.r.n. for nausea. 8. Pantoprazole 40 mg daily. 9. Propranolol 20 mg p.o. b.i.d. 10. Simvastatin 40 mg at bedtime. 11. Januvia 100 mg p.o. daily. Ceftriaxone will be discontinued, as well as vancomycin. Enoxaparin will also be discontinued. DISCHARGE INSTRUCTIONS: Occupational and physical therapy consults were obtained. [facility]
== END 2018-08-22 13:43 | DRG 602 ==
LOC: ED 10:38 → SOUTH 13:57
PROVIDERS: ADMIT Family Medicine; ATTEND Family Medicine
DX: L03.116 Cellulitis of left lower limb (principal); I50.21 Acute systolic (congestive) heart failure; E11.59 Type 2 diabetes mellitus with other circulatory complications; I10 Essential (primary) hypertension
CPT/HCPCS: 36415; 80048; 80053; 80202; 85025; 85651; 86140; 87040; 93970; J0690; J0696; J1650; J1815; J3370; J7050; J7060; 96365; 96366; 99222; 99231; 99232; 99238; S1016

== ENCOUNTER 2018-08-22 13:45 | Inpatient (IN) | payer MEDICARE, OTHER ==
[2018-08-22] MEDS ORDERED: BISACODYL 5 MG TABLET.DR PO PRN (14:21)
[2018-08-22 16:21] VITALS: BMI 62.8
[2018-08-22] MEDS: APIXABAN 2.5 MG TABLET PO SCH (20:15)
[2018-08-22] MEDS: SIMVASTATIN 40 MG TABLET PO SCH (20:15)
[2018-08-22] MEDS: CEFUROXIME AXETIL 250 MG TABLET PO SCH (20:16)
[2018-08-22] MEDS: PANTOPRAZOLE SODIUM 40 MG TABLET.DR PO SCH (20:16)
[2018-08-22] MEDS: INSULIN REGULAR, HUMAN 100 UNIT/ML 3ML VIAL SQ SCH (21:01)
[2018-08-22] MEDS ORDERED: FUROSEMIDE 20 MG TABLET PO ONE (23:12)
[2018-08-22] MEDS ORDERED: SITAGLIPTIN PHOSPHATE 50 MG TABLET PO ONE (23:14)
[2018-08-22] MEDS ORDERED: ASPIRIN 81 MG CHEW TAB ONE (23:16)
[2018-08-23] MEDS: LEVOTHYROXINE SODIUM 100 MCG TABLET PO SCH (06:03)
[2018-08-23 06:13] LABS: eGFR (Non-African) > 60
[2018-08-23] MEDS: INSULIN REGULAR, HUMAN 100 UNIT/ML 3ML VIAL SQ SCH ×4 (09:16→21:11)
[2018-08-23] MEDS: APIXABAN 2.5 MG TABLET PO SCH ×2 (09:16→21:09)
[2018-08-23] MEDS: FUROSEMIDE 20 MG TABLET PO SCH (09:16)
[2018-08-23] MEDS: PANTOPRAZOLE SODIUM 40 MG TABLET.DR PO SCH ×2 (09:17→21:09)
[2018-08-23] MEDS: SITAGLIPTIN PHOSPHATE 50 MG TABLET PO SCH (09:17)
[2018-08-23] MEDS: ASPIRIN 81 MG CHEW TAB PO SCH (09:17)
[2018-08-23] MEDS: CEFUROXIME AXETIL 250 MG TABLET PO SCH ×2 (09:17→21:09)
[2018-08-23] MEDS: PROPRANOLOL HCL 20 MG TABLET PO SCH (09:19)
[2018-08-23] MEDS: SIMVASTATIN 40 MG TABLET PO SCH (21:09)
[2018-08-24] MEDS: LEVOTHYROXINE SODIUM 100 MCG TABLET PO SCH (06:01)
[2018-08-24 06:15] LABS: BASOPHILS % 0.3 (0.0-1.5); EOSINOPHILS % 7.5 % (0.0-6.8); MEAN CORPUSCULAR HEMOGLOBIN 29.9 pg (28.0-34.0); MONOCYTES % 10.4 % (0.0-11.0); NEUTROPHILS # 2.3 # k/uL (1.4-7.7)
[2018-08-24] MEDS: INSULIN REGULAR, HUMAN 100 UNIT/ML 3ML VIAL SQ SCH ×4 (09:09→20:41)
[2018-08-24] MEDS: FUROSEMIDE 20 MG TABLET PO SCH (09:09)
[2018-08-24] MEDS: SITAGLIPTIN PHOSPHATE 50 MG TABLET PO SCH (09:09)
[2018-08-24] MEDS: PANTOPRAZOLE SODIUM 40 MG TABLET.DR PO SCH ×2 (09:09→20:26)
[2018-08-24] MEDS: ASPIRIN 81 MG CHEW TAB PO SCH (09:10)
[2018-08-24] MEDS: APIXABAN 2.5 MG TABLET PO SCH ×2 (09:10→20:27)
[2018-08-24] MEDS: CEFUROXIME AXETIL 250 MG TABLET PO SCH ×2 (09:10→20:26)
[2018-08-24] MEDS: PROPRANOLOL HCL 20 MG TABLET PO SCH (09:10)
[2018-08-24] MEDS: SIMVASTATIN 40 MG TABLET PO SCH (20:26)
[2018-08-25] MEDS: LEVOTHYROXINE SODIUM 100 MCG TABLET PO SCH (06:41)
[2018-08-25] MEDS: INSULIN REGULAR, HUMAN 100 UNIT/ML 3ML VIAL SQ SCH ×4 (07:20→21:33)
[2018-08-25] MEDS: PROPRANOLOL HCL 20 MG TABLET PO SCH (08:33)
[2018-08-25] MEDS: FUROSEMIDE 20 MG TABLET PO SCH (08:34)
[2018-08-25] MEDS: PANTOPRAZOLE SODIUM 40 MG TABLET.DR PO SCH ×2 (08:34→21:30)
[2018-08-25] MEDS: APIXABAN 2.5 MG TABLET PO SCH ×2 (08:35→21:30)
[2018-08-25] MEDS: ASPIRIN 81 MG CHEW TAB PO SCH (08:35)
[2018-08-25] MEDS: SITAGLIPTIN PHOSPHATE 50 MG TABLET PO SCH (08:35)
[2018-08-25] MEDS: CEFUROXIME AXETIL 250 MG TABLET PO SCH ×2 (08:35→21:30)
[2018-08-25] MEDS: SIMVASTATIN 40 MG TABLET PO SCH (21:30)
[2018-08-26] MEDS: LEVOTHYROXINE SODIUM 100 MCG TABLET PO SCH (06:22)
[2018-08-26] MEDS: INSULIN REGULAR, HUMAN 100 UNIT/ML 3ML VIAL SQ SCH ×4 (07:37→20:39)
[2018-08-26] MEDS: PROPRANOLOL HCL 20 MG TABLET PO SCH (08:06)
[2018-08-26] MEDS: PANTOPRAZOLE SODIUM 40 MG TABLET.DR PO SCH ×2 (08:06→20:35)
[2018-08-26] MEDS: FUROSEMIDE 20 MG TABLET PO SCH (08:06)
[2018-08-26] MEDS: CEFUROXIME AXETIL 250 MG TABLET PO SCH ×2 (08:06→20:35)
[2018-08-26] MEDS: APIXABAN 2.5 MG TABLET PO SCH ×2 (08:06→20:35)
[2018-08-26] MEDS: ASPIRIN 81 MG CHEW TAB PO SCH (08:06)
[2018-08-26] MEDS: SITAGLIPTIN PHOSPHATE 50 MG TABLET PO SCH (08:06)
[2018-08-26] MEDS: SIMVASTATIN 40 MG TABLET PO SCH (20:35)
[2018-08-27] MEDS: LEVOTHYROXINE SODIUM 100 MCG TABLET PO SCH (06:20)
[2018-08-27] MEDS: INSULIN REGULAR, HUMAN 100 UNIT/ML 3ML VIAL SQ SCH ×4 (07:39→20:40)
[2018-08-27] MEDS: APIXABAN 2.5 MG TABLET PO SCH ×2 (09:11→20:39)
[2018-08-27] MEDS: SITAGLIPTIN PHOSPHATE 50 MG TABLET PO SCH (09:11)
[2018-08-27] MEDS: FUROSEMIDE 20 MG TABLET PO SCH (09:11)
[2018-08-27] MEDS: PANTOPRAZOLE SODIUM 40 MG TABLET.DR PO SCH ×2 (09:11→20:40)
[2018-08-27] MEDS: ASPIRIN 81 MG CHEW TAB PO SCH (09:11)
[2018-08-27] MEDS: CEFUROXIME AXETIL 250 MG TABLET PO SCH ×2 (09:11→20:39)
[2018-08-27] MEDS: PROPRANOLOL HCL 20 MG TABLET PO SCH (09:12)
[2018-08-27] MEDS: SIMVASTATIN 40 MG TABLET PO SCH (20:40)
[2018-08-28] MEDS: LEVOTHYROXINE SODIUM 100 MCG TABLET PO SCH (06:13)
[2018-08-28] MEDS: INSULIN REGULAR, HUMAN 100 UNIT/ML 3ML VIAL SQ SCH ×4 (07:11→20:26)
[2018-08-28] MEDS: ASPIRIN 81 MG CHEW TAB PO SCH (09:16)
[2018-08-28] MEDS: FUROSEMIDE 20 MG TABLET PO SCH (09:16)
[2018-08-28] MEDS: APIXABAN 2.5 MG TABLET PO SCH ×2 (09:17→20:25)
[2018-08-28] MEDS: SITAGLIPTIN PHOSPHATE 50 MG TABLET PO SCH (09:17)
[2018-08-28] MEDS: PANTOPRAZOLE SODIUM 40 MG TABLET.DR PO SCH ×2 (09:17→20:25)
[2018-08-28] MEDS: CEFUROXIME AXETIL 250 MG TABLET PO SCH ×2 (09:17→20:25)
[2018-08-28] MEDS: PROPRANOLOL HCL 20 MG TABLET PO SCH (09:20)
[2018-08-28] MEDS: SIMVASTATIN 40 MG TABLET PO SCH (20:25)
[2018-08-29] MEDS: LEVOTHYROXINE SODIUM 100 MCG TABLET PO SCH (06:10)
[2018-08-29] MEDS: INSULIN REGULAR, HUMAN 100 UNIT/ML 3ML VIAL SQ SCH ×4 (07:20→21:18)
[2018-08-29] MEDS: CEFUROXIME AXETIL 250 MG TABLET PO SCH ×2 (08:38→21:17)
[2018-08-29] MEDS: APIXABAN 2.5 MG TABLET PO SCH ×2 (08:38→21:16)
[2018-08-29] MEDS: SITAGLIPTIN PHOSPHATE 50 MG TABLET PO SCH (08:38)
[2018-08-29] MEDS: FUROSEMIDE 20 MG TABLET PO SCH (08:39)
[2018-08-29] MEDS: ASPIRIN 81 MG CHEW TAB PO SCH (08:39)
[2018-08-29] MEDS: PANTOPRAZOLE SODIUM 40 MG TABLET.DR PO SCH ×2 (08:39→21:17)
[2018-08-29] MEDS: PROPRANOLOL HCL 20 MG TABLET PO SCH (08:42)
[2018-08-29] MEDS: SIMVASTATIN 40 MG TABLET PO SCH (21:17)
[2018-08-30] MEDS: LEVOTHYROXINE SODIUM 100 MCG TABLET PO SCH (06:27)
[2018-08-30] MEDS: INSULIN REGULAR, HUMAN 100 UNIT/ML 3ML VIAL SQ SCH (07:43)
[2018-08-30] MEDS: PANTOPRAZOLE SODIUM 40 MG TABLET.DR PO SCH (07:57)
[2018-08-30] MEDS: CEFUROXIME AXETIL 250 MG TABLET PO SCH (07:57)
[2018-08-30] MEDS: ASPIRIN 81 MG CHEW TAB PO SCH (07:57)
[2018-08-30] MEDS: FUROSEMIDE 20 MG TABLET PO SCH (07:57)
[2018-08-30] MEDS: PROPRANOLOL HCL 20 MG TABLET PO SCH (07:58)
[2018-08-30] MEDS: APIXABAN 2.5 MG TABLET PO SCH (07:58)
[2018-08-30] MEDS: SITAGLIPTIN PHOSPHATE 50 MG TABLET PO SCH (07:58)
[2018-08-30 08:59] VITALS: BP 120/68
== END 2018-08-30 09:43 | disposition home or self-care (01) | DRG 603 ==
LOC: SOUTH 13:45
PROVIDERS: ADMIT Family Medicine; ATTEND Family Medicine
DX: L03.116 Cellulitis of left lower limb (principal); I82.402 Acute embolism and thrombosis of unspecified deep veins of left lower extremity; E11.9 Type 2 diabetes mellitus without complications; I10 Essential (primary) hypertension
CPT/HCPCS: 80053; 85025

== ENCOUNTER 2018-12-15 23:49 | Emergency (ER) | payer MEDICARE, OTHER ==
[2018-12-16] MEDS ORDERED: PHENYLEPHRINE HCL NS ONE (00:35)
--- NOTE | 2018-12-16 00:46 | ED Physician Documentation ---
General Adult - HISTORIAN Historian: patient, spouse - HPI Stated Complaint: nose bleed Chief Complaint: General Adult Additional Information: nose bl\eed onset approx 2 hr ago - stoppen on way to town w. direct pressure. p0t is on eliquis for heart valve Onset: hours (2) Timing: gone now Severity: mild Further Comments: yes (gave pt bottle of nasocorrt with instructiojns on how to use cotton saturated w/nasocort and appply pressujre on KIESSELBACHS PLEXUS) - ROS CONST: no problems. denies: fever, sweating, recent illness, weakness EYES/ENT: none. denies: problems with vision CVS/RESP: none GI/: none MS/SKIN/LYMPH: none. denies: ankle swelling NEURO/PSYCH: denies: headache, fainting, dizziness, tingling - PAST HX Past History: hypertension (CELLULITIS LT LOWER LEG) Other History: diabetes Type 1 Surgeries/Procedures: , other (HEART VALVE) Allergies/Adverse Reactions: Allergies Allergy/AdvReac Type Severity Reaction Status Date / Time Penicillins Allergy Intermediate Rash Verified 08/18/18 10:56 Home Medications: Ambulatory Orders Medication Instructions Recorded Levothyroxine Sodium [Synthroid] 100 mcg PO 0700 09/30/14 Apixaban [Eliquis] 2.5 mg PO BID 12/15/18 Furosemide 20 mg PO D 12/15/18 Omeprazole 20 mg PO D 12/15/18 Potassium Chloride [Klor-Con 10] 10 meq PO D 12/15/18 Simvastatin [Zocor] 40 mg PO D 12/15/18 Sitagliptin Phosphate [Januvia] 1 tab PO DIRECTED 12/15/18 - SOCIAL HX Smoking History: non-smoker Alcohol Use: none Drug Use: none - FAMILY HX Family History: No - VITAL SIGNS Vital Signs: Vital Signs Temp Pulse Resp BP Pulse Ox 97.7 F 115 H 18 200/105 96 12/15/18 23:51 12/15/18 23:51 12/15/18 23:51 12/15/18 23:51 12/15/18 23:51 - REVIEWED ASSESSMENTS Nursing Assessment Reviewed: Yes Vitals Reviewed: Yes ED Results Lab/Radiology - Orders Orders: ED Orders Category Date Time Status Phenylephrine HCl [Isaiah-Synephrine] Med 12/16/18 00:35 Discontinued 15 ml NS .STK-MED ONE General Adult Physical Exam - PHYSICAL EXAM GENERAL APPEARANCE: mild distress EENT: eye inspection normal, ENT inspection normal, pharynx normal NECK: normal inspection, thyroid normal, supple, thyromegaly RESPIRATORY: no resp distress, chest non-tender, breath sounds normal CVS: reg rate & rhythm, heart sounds normal ABDOMEN: soft, non-tender SKIN: warm/dry, normal color. No: cyanosis, diaphoresis EXTREMITIES: non-tender, normal range of motion, no evidence of injury, no edema NEURO: oriented X3, motor nml, sensation nml, mood/affect nml Discharge Clincal Impression: EPISTAXIS Referrals: Primary Doctor,No [Primary Care Provider] - 2 Days Condition: Good Disposition: 01 HOME, SELF-CARE Decision to Admit: NO Decision Time: 00:53
[2018-12-16 02:25] VITALS: BP 139/69
== END 2018-12-16 00:52 | disposition home or self-care (01) ==
LOC: ED 23:49
DX: R04.0 Epistaxis (principal)
CPT/HCPCS: 99281; 99282

== ENCOUNTER 2019-05-24 09:23 | Emergency (ER) | payer MEDICARE, OTHER ==
--- NOTE | 2019-05-24 09:45 | ED Physician Documentation ---
General Adult - HISTORIAN Historian: patient - HPI Stated Complaint: dizzy Chief Complaint: General Adult Onset: hours Timing: still present Severity: moderate Further Comments: yes (Pt is an 83 yo female with c/o dizziness and headache. Pt says that her "head is swimming." Normal BM's, no UTI sx; no n/v; no fever.) - ROS CONST: no problems EYES/ENT: none CVS/RESP: none GI/: none MS/SKIN/LYMPH: rash (rash on L ankle) NEURO/PSYCH: headache, dizziness - PAST HX Past History: other (DM, GERD, hypothyroidism, HTN) Allergies/Adverse Reactions: Allergies Allergy/AdvReac Type Severity Reaction Status Date / Time Penicillins Allergy Intermediate Rash Verified 05/24/19 09:54 Home Medications: Ambulatory Orders Medication Instructions Recorded Levothyroxine Sodium [Synthroid] 100 mcg PO 0700 09/30/14 Furosemide 20 mg PO D 12/15/18 Omeprazole 20 mg PO D 12/15/18 Potassium Chloride [Klor-Con 10] 10 meq PO D 12/15/18 Simvastatin [Zocor] 40 mg PO D 12/15/18 Sitagliptin Phosphate [Januvia] 1 tab PO DIRECTED 12/15/18 Cefuroxime Axetil [Ceftin] 500 mg PO BID #20 tablet 05/02/19 - SOCIAL HX Smoking History: non-smoker - FAMILY HX Family History: No - VITAL SIGNS Vital Signs: Vital Signs Temp Pulse Resp BP Pulse Ox 123/53 05/02/19 21:25 - REVIEWED ASSESSMENTS Nursing Assessment Reviewed: Yes Vitals Reviewed: Yes Progress - Progress Progress: NS 1 L IVF improved May use Lamisil AT on red patches on leg. Use as directed for 2 weeks. Continue Keflex as prescribed. General Adult Physical Exam - PHYSICAL EXAM GENERAL APPEARANCE: mild distress EENT: eye inspection normal, pharynx normal, dry mucous membranes NECK: normal inspection, supple RESPIRATORY: no resp distress, chest non-tender, breath sounds normal CVS: reg rate & rhythm, heart sounds normal ABDOMEN: soft, no organomegaly, normal bowel sounds BACK: normal inspection, no CVA tenderness SKIN: warm/dry, other (circular erythematous lesion on L ankle, possible ringworm) EXTREMITIES: non-tender, normal range of motion, no evidence of injury NEURO: oriented X3, CN's nml as tested, motor nml, sensation nml Discharge Clincal Impression: Dehydration, hematuria Referrals: Wisam Quintana DO [Primary Care Provider] - Condition: Stable Disposition: 01 HOME, SELF-CARE Decision to Admit: NO Decision Time: 12:45
[2019-05-24] MEDS ORDERED: 0.9 % SODIUM CHLORIDE 1,000 ML IV ONE (09:49)
[2019-05-24 10:48] LABS: BASOPHILS % 0.2 % (0.0-1.5)
[2019-05-24 10:50] LABS: eGFR (Non-African) 39
[2019-05-24 12:57] VITALS: BP 145/57
[2019-05-24 14:59] LABS: APPEARANCE,URINE CLEAR (CLEAR); COLOR,URINE AMBER (YELLOW); OCCULT BLOOD,URINE 2+ (NEGATIVE); UROBILINOGEN URINE 0.2 Eu (0.2-1.0)
== END 2019-05-24 12:45 | disposition home or self-care (01) ==
LOC: ED 09:23
DX: E86.0 Dehydration (principal); R31.9 Hematuria, unspecified
CPT/HCPCS: 36415; 80053; 81002; 83880; 85025; 96360; 99283; 99284; J7030; S1016

== ENCOUNTER 2019-06-16 19:42 | Emergency (ER) | payer MEDICARE, OTHER ==
[2019-06-16] MEDS ORDERED: 0.9 % SODIUM CHLORIDE 500 ML IV ONE (20:00)
--- NOTE | 2019-06-16 20:43 | ED Physician Documentation ---
General Adult - HISTORIAN Historian: patient, paramedics - HPI Stated Complaint: weakness Chief Complaint: General Adult Additional Information: Patient is an 83-year-old female who presents to the ER via [facility] from home. EMS was called due to patient being weak and fatigued. Was not able to make it to the bathroom and was incontinent so family called EMS. Patient states that she ate a fish sandwich from [employer] and she should not have done that. She is alert and oriented- no acute distress. Onset: minutes Timing: still present Severity: mild Modifying Factors: Decreased oral intake - ROS CONST: weakness, chills EYES/ENT: none CVS/RESP: none GI/: other (incontinent of bowel and bladder due to not making it to the bathroom) MS/SKIN/LYMPH: none NEURO/PSYCH: difficulty walking - PAST HX Past History: hypertension, other (hypothyroid) Other History: diabetes Type 2, other (GERD) Surgeries/Procedures: other (transaortic valve replacement) Immunizations: UTD Allergies/Adverse Reactions: Allergies Allergy/AdvReac Type Severity Reaction Status Date / Time Penicillins Allergy Intermediate Rash Verified 06/16/19 20:22 Home Medications: Ambulatory Orders Medication Instructions Recorded Levothyroxine Sodium [Synthroid] 100 mcg PO 0700 09/30/14 Furosemide 20 mg PO D 12/15/18 Omeprazole 20 mg PO D 12/15/18 Potassium Chloride [Klor-Con 10] 10 meq PO D 12/15/18 Sitagliptin Phosphate [Januvia] 1 tab PO DIRECTED 12/15/18 Sulfamethoxazole/Trimethoprim 1 each PO BID #20 tab 06/16/19 [Bactrim Ds] - SOCIAL HX Smoking History: non-smoker Alcohol Use: none Drug Use: none - FAMILY HX Family History: No - VITAL SIGNS Vital Signs: Vital Signs Temp Pulse Resp BP Pulse Ox 100.5 F H 96 H 22 168/74 94 06/16/19 19:50 06/16/19 19:50 06/16/19 19:50 06/16/19 19:50 06/16/19 19:50 - REVIEWED ASSESSMENTS Nursing Assessment Reviewed: Yes Vitals Reviewed: Yes ED Results Lab/Radiology - Lab Results Lab Results: WBC 10.9, HGB 10.8, HCT 32, PLATELET 96 NA 136, K+ 3.8, CL 105, CO2 21, BUN 27, CR 1.43, GLUCOSE 199 - Orders Orders: ED Orders Category Date Time Status Place IV Lock 1T Care 06/16/19 19:48 Active CHEST 1VIEW [RAD] Stat Exams 06/16/19 Ordered BLOOD CULTURE Stat Lab 06/16/19 Ordered CBC/PLATELET/DIFF Routine Lab 06/16/19 20:23 Received CMP Routine Lab 06/16/19 20:22 Received URINALYSIS Routine Lab 06/16/19 Ordered 0.9 % Sodium Chloride [Normal Saline] 500 ml Med 06/16/19 20:00 Active IV NOW General Adult Physical Exam - PHYSICAL EXAM GENERAL APPEARANCE: no distress EENT: eye inspection normal, ENT inspection normal, pharynx normal, SHERRY, dry mucous membranes NECK: normal inspection, supple RESPIRATORY: no resp distress, chest non-tender, breath sounds normal CVS: reg rate & rhythm, heart sounds normal, equal pulses ABDOMEN: soft, normal bowel sounds BACK: normal inspection SKIN: warm/dry, pallor EXTREMITIES: non-tender, normal range of motion, no evidence of injury NEURO: oriented X3, CN's nml as tested, motor nml, sensation nml, mood/affect nml, cognition normal Discharge Clincal Impression: Urinary tract infection, Dehydration Prescriptions: Sulfamethoxazole/Trimethoprim [Bactrim Ds] 1 each PO BID #20 tab Referrals: Wisam Quintana DO [Primary Care Provider] - 2 Days Additional Instructions: Increase water intake- drink 8 8oz glasses of water daily Take Bactrim by mouth twice a day for UTI Call and schedule appointment with PCP this upcoming week for re-evaluation Condition: Good Disposition: 01 HOME, SELF-CARE Decision to Admit: NO Decision Time: 21:12
[2019-06-16] MEDS ORDERED: SULFAMETHOXAZOLE/TRIMETHOPRIM 800/160MG TAB PO ONE (20:47)
[2019-06-16 21:54] VITALS: BP 138/78
[2019-06-17 06:19] LABS: BASOPHILS % 0.4 % (0.0-1.5); NEUTROPHILS # 9.2 # k/uL (1.4-7.7)
[2019-06-17 06:20] LABS: eGFR (Non-African) 37
--- NOTE | 2019-06-17 06:21 | Diagnostic Imaging Report ---
EVA PERRY ED [facility] [id number] [facility] [address] [address] Report Submission Date: Jun 16, 2019 8:58:03 PM CDT Patient Study Name: GALI EDGE Date: Jun 16, 2019 8:18:58 PM CDT Modality Type: DX Gender: F Description: CHEST 1VIEW : 31 Institution: [facility] Physician: EVA PERRY ED Portable view chest Clinical history: Weakness and lethargy Findings: The heart size is normal. The pulmonary vasculature is normal. No pleural effusion, pneumothorax or alveolar consolidation. There is mild atelectasis in the left lower lobe. Electronically signed on Jun 16, 2019 8:58:03 PM CDT by: Bebeto BAUTISTA
[2019-06-17 06:23] LABS: APPEARANCE,URINE CLOUDY (CLEAR); COLOR,URINE YELLOW (YELLOW); OCCULT BLOOD,URINE 1+ (NEGATIVE); PH URINE 5.5 (5.0 - 8.0); UROBILINOGEN URINE 0.2 Eu (0.2-1.0)
== END 2019-06-16 21:54 | disposition home or self-care (01) ==
LOC: ED 19:42
DX: N39.0 Urinary tract infection, site not specified (principal); E86.0 Dehydration
CPT/HCPCS: 71045; 80053; 81002; 85025; 87040; 87086; 96360; 99284; J7060; A9270; S1016

== ENCOUNTER 2019-07-07 18:23 | Emergency (ER) | payer MEDICARE, OTHER ==
--- NOTE | 2019-07-07 18:45 | ED Physician Documentation ---
General Adult - HISTORIAN Historian: patient - HPI Stated Complaint: weakness Chief Complaint: General Adult Onset: hours Timing: still present Severity: moderate Further Comments: yes (Pt is an 83 yo female with c/o weakness and with 2nd c/o L leg redness and calf pain. Pt has hx cellulitis in the L leg with chronic swelling, but swelling is less than usual. The leg pain and redness is new however. Pt had been on Eliquis for mitral valve repair in 2006, but was told to stop taking it last week. As regards her c/o weakness, pt states that she feels as she did last month when she was tx'd here for dehydration and UTI. Pt had catarac surgery last week.) - ROS CONST: weakness EYES/ENT: other (recent catarac surgery) CVS/RESP: none GI/: none MS/SKIN/LYMPH: leg swelling (chronic), leg pain (L), other (L leg redness) - PAST HX Past History: other (DM, HTN,) Surgeries/Procedures: cholecystectomy, other (appendectomy, mitral valve replacement (2006), catarac surgery (June 2019).) Allergies/Adverse Reactions: Allergies Allergy/AdvReac Type Severity Reaction Status Date / Time Penicillins Allergy Intermediate Rash Verified 07/07/19 18:41 Home Medications: Ambulatory Orders Medication Instructions Recorded Levothyroxine Sodium [Synthroid] 100 mcg PO 0700 09/30/14 Furosemide 20 mg PO D 12/15/18 Omeprazole 20 mg PO D 12/15/18 Potassium Chloride [Klor-Con 10] 10 meq PO D 12/15/18 Sitagliptin Phosphate [Januvia] 1 tab PO DIRECTED 12/15/18 - SOCIAL HX Smoking History: non-smoker - FAMILY HX Family History: No - VITAL SIGNS Vital Signs: Vital Signs Temp Pulse Resp BP Pulse Ox 138/78 06/16/19 21:52 - REVIEWED ASSESSMENTS Nursing Assessment Reviewed: Yes Vitals Reviewed: Yes Progress - Progress Progress: NS 1 L IVF some improvement in "weakness." D dimer = 1100 Ultrasound not available at this time at this facility to assess for DVT. Transfer to . Hosp. Dr. Vasques. ED Results Lab/Radiology - Orders Orders: ED Orders Category Date Time Status Place IV Lock 1T Care 07/07/19 18:42 Ordered BNP [NTBNP] Stat Lab 07/07/19 Ordered CBC/PLATELET/DIFF Routine Lab 07/07/19 Ordered CMP Routine Lab 07/07/19 Ordered URINALYSIS Routine Lab 07/07/19 Ordered NORMAL SALINE @ 500 MLS/HR(500ml BOLUS) Med 07/07/19 18:43 Ordered 0.9 % Sodium Chloride [Normal Saline] 500 ml IV NOW General Adult Physical Exam - PHYSICAL EXAM GENERAL APPEARANCE: mild distress EENT: pharynx normal NECK: normal inspection, supple RESPIRATORY: no resp distress, chest non-tender, breath sounds normal CVS: reg rate & rhythm, heart sounds normal ABDOMEN: soft, no organomegaly, normal bowel sounds BACK: normal inspection, no CVA tenderness SKIN: other (L leg patchy erythema) EXTREMITIES: tenderness (L calf) NEURO: oriented X3, motor nml, sensation nml Discharge Clincal Impression: L calf pain, possible DVT, weakness/malaise Referrals: Jagruti Wong MD [Primary Care Provider] - Condition: Stable Disposition: XFER SHT-TRM HOSP Decision to Admit: NO Decision Time: 22:00
[2019-07-07] MEDS: 0.9 % SODIUM CHLORIDE 500 ML IV ONE ×2 (19:15→20:55)
[2019-07-07 22:05] VITALS: BP 140/62
[2019-07-08 06:28] LABS: BASOPHILS % 0.3 % (0.0-1.5); NEUTROPHILS # 6.5 # k/uL (1.4-7.7)
[2019-07-08 07:53] LABS: APPEARANCE,URINE CLEAR (CLEAR); COLOR,URINE YELLOW (YELLOW); OCCULT BLOOD,URINE NEGATIVE (NEGATIVE); PH URINE 5.5 (5.0 - 8.0); UROBILINOGEN URINE 0.2 Eu (0.2-1.0)
== END 2019-07-07 22:05 | disposition short-term general hospital (02) ==
LOC: ED 18:23
DX: M79.662 Pain in left lower leg (principal); R53.1 Weakness; R53.81 Other malaise

== ENCOUNTER 2019-07-29 11:20 | Outpatient (CLI) | payer MEDICARE, OTHER | END 2019-07-29 11:23 | LOC: LAB 11:20 | PROVIDERS: ATTEND Family Medicine | DX: E11.8 Type 2 diabetes mellitus with unspecified complications (principal) | CPT/HCPCS: 36415; 83036 ==

== ENCOUNTER 2019-11-19 12:06 | Outpatient (CLI) | payer MEDICARE, OTHER | END 2019-11-19 12:11 | LOC: LABRHC 12:06 | PROVIDERS: ATTEND Family Medicine | DX: E11.9 Type 2 diabetes mellitus without complications (principal); E03.9 Hypothyroidism, unspecified | CPT/HCPCS: 80053; 80061; 83036; 84443 ==